=== PATIENT | male | born 1965 | race American Indian/Alaskan Native ===

== ENCOUNTER 2021-04-15 16:03 | Inpatient (IN) | payer MEDICARE ==
[2021-04-15] MEDS ORDERED: LIDOCAINE-MPF (1%) 10 MG/1 ML VIAL 5 ML INFILTRATI ONE (16:56)
--- NOTE | 2021-04-15 17:02 | Emergency Department Report ---
HPI - General Chief Complaint: Syncope Time Seen by Provider: 04/15/21 16:54 - HPI HPI: 55-year-old -Burm[place] male presents to the emergency department with complaint of 2 recent syncopal episodes that occur during coughing fits. The patient has a history of COPD, not oxygen dependent, and pulmonary hypertension. The patient also history of a pulmonary embolism for which he is anticoagulated on Eliquis and taking his medication compliantly. He says that he had an instance a few years ago in which she also had an episode where he passed out after coughing. Recently the patient says that any type of exertion brings on a coughing fit. The first time he passed out he fell and hurt his right knee. The second time he passed out, today, he fell onto his left knee and then hit his face. He complains of some bleeding to the lower gums. He denies any neck pain, fever, chest pain, vision change, slurred speech, numbness or paresthesias, focal or lateralizing weakness. He follows with [facility] cardiology for the pulmonary hypertension. ED Review of Systems ROS: Stated complaint: BLACK OUTS Other details as noted in HPI Comment: All other systems reviewed and negative Constitutional: denies: chills, fever Eyes: denies: eye pain, vision change ENT: denies: ear pain, throat pain Respiratory: cough, wheezing Cardiovascular: denies: chest pain, syncope Gastrointestinal: denies: abdominal pain, vomiting Genitourinary: denies: dysuria, discharge Musculoskeletal: denies: back pain, arthralgia Skin: denies: rash, lesions Neurological: denies: headache, weakness Physical Exam - Physical Exam Vital Signs: Vital Signs 04/15/21 16:18 Temperature 98.3 F Pulse Rate 88 Respiratory 16 Rate Blood Pressure 135/82 [Left] O2 Sat by Pulse 94 Oximetry Physical Exam: GENERAL: The patient is well-developed well-nourished. HENT: Normocephalic. Patient has moist mucous membranes. There is a small circ ular laceration to the lower midline gum where it meets the mucosa of the lower lip with mild venous bleeding. No obvious dental fracture or injury. No drooling or trismus. EYES: Extraocular motions are intact. Pupils equal reactive to light bilaterally. NECK: Supple. Trachea is midline. CHEST/LUNGS: Clear to auscultation. There is no respiratory distress noted. HEART/CARDIOVASCULAR: Regular. There is no tachycardia. There is no murmur. ABDOMEN: Abdomen is soft, nontender. Patient has normal bowel sounds. Obese habitus. SKIN: Skin is warm and dry. NEURO: The patient is awake, alert, and oriented. The patient is cooperative. The patient has no focal neurologic deficits. Normal speech. Cranial nerves II through XII grossly intact. MUSCULOSKELETAL: There is no tenderness or deformity. There is no limitation range of motion. ED Course Vital Signs 04/15/21 16:18 Temperature 98.3 F Pulse Rate 88 Respiratory 16 Rate Blood Pressure 135/82 [Left] O2 Sat by Pulse 94 Oximetry - Consultations Consultation #1: 04/15/21 19:[address] Alvarez, nephrology, who is part of the practice that this patient has just recently establish care with. Dr. Alvarez has requested the patient be admitted to the medical service and has asked for a UA and renal ultrasound to be completed. They will see the patient as a consult. - Laceration /Wound Repair Face Wound Location: mouth (Lower midline mouth where the gumline meets mucosa) Wound Length (cm): 1 (< 0.5) Wound's Depth, Shape: irregular (Circular opening) Wound Explored: no foreign body removed Anesthesia: 1% Lidocaine Volume Anesthetic (ccs): 1 Wound Repaired With: sutures Suture Size/Type: 5:0 Number of Sutures: 1 (Vicryl) Layer Closure?: No ED Medical Decision Making - Lab Data Result diagrams: 04/15/21 17:01 04/15/21 17:01 Labs 04/15/21 04/15/21 04/15/21 17:01 17:01 17:01 WBC 14.1 H RBC 4.17 Hgb 11.6 L Hct 35.1 L MCV 84 MCH 28 MCHC 33 RDW 23.2 H Plt Count 299 Add Manual Diff Complete Total Counted 100 Seg Neuts % (Manual) 72.0 H Band Neutrophils % 0 Lymphocytes % (Manual) 10.0 L Reactive Lymphs % (Man) 0 Monocytes % (Manual) 16.0 H Eosinophils % (Manual) 1.0 Basophils % (Manual) 1.0 Metamyelocytes % 0 Myelocytes % 0 Promyelocytes % 0 Blast Cells % 0 Nucleated RBC % Not Reportable Seg Neutrophils # Man 10.2 H Band Neutrophils # 0.0 Lymphocytes # (Manual) 1.4 Abs React Lymphs (Man) 0.0 Monocytes # (Manual) 2.3 H Eosinophils # (Manual) 0.1 Basophils # (Manual) 0.1 Metamyelocytes # 0.0 Myelocytes # 0.0 Promyelocytes # 0.0 Blast Cells # 0.0 WBC Morphology Not Reportable Hypersegmented Neuts Not Reportable Hyposegmented Neuts Not Reportable Hypogranular Neuts Not Reportable Smudge Cells Not Reportable Toxic Granulation Not Reportable Toxic Vacuolation Not Reportable Dohle Bodies Not Reportable Pelger-Huet Anomaly Not Reportable Wilfrid Rods Not Reportable Platelet Estimate Not Reportable Clumped Platelets Not Reportable Plt Clumps, EDTA Not Reportable Large Platelets Not Reportable Giant Platelets Not Reportable Platelet Satelliting Not Reportable Plt Morphology Comment Not Reportable RBC Morphology Not Reportable Dimorphic RBCs Not Reportable Polychromasia Not Reportable Hypochromasia Rare Poikilocytosis Not Reportable Anisocytosis 2+ Microcytosis Not Reportable Macrocytosis Not Reportable Spherocytes Not Reportable Pappenheimer Bodies Not Reportable Sickle Cells Not Reportable Target Cells Not Reportable Tear Drop Cells Not Reportable Ovalocytes Not Reportable Helmet Cells Not Reportable Muhammad-Lesage Bodies Not Reportable [place] Rings Not Reportable Bernard Cells Not Reportable Bite Cells Not Reportable Crenated Cell Not Reportable Elliptocytes Not Reportable Acanthocytes (Spur) Not Reportable Rouleaux Not Reportable Hemoglobin C Crystals Not Reportable Schistocytes Not Reportable Malaria parasites Not Reportable Carlton Bodies Not Reportable Hem Pathologist Commnt No PT 16.0 H INR 1.15 H APTT 28.1 Sodium 127 L Potassium 4.2 Chloride 78.1 L Carbon Dioxide 33 H Anion Gap 20 BUN 93 H Creatinine 3.0 H Estimated GFR 22 BUN/Creatinine Ratio 31 Glucose 211 H Calcium 9.4 Troponin T 0.027 NT-Pro-B Natriuret Pep 04/15/21 17:01 WBC RBC Hgb Hct MCV MCH MCHC RDW Plt Count Add Manual Diff Total Counted Seg Neuts % (Manual) Band Neutrophils % Lymphocytes % (Manual) Reactive Lymphs % (Man) Monocytes % (Manual) Eosinophils % (Manual) Basophils % (Manual) Metamyelocytes % Myelocytes % Promyelocytes % Blast Cells % Nucleated RBC % Seg Neutrophils # Man Band Neutrophils # Lymphocytes # (Manual) Abs React Lymphs (Man) Monocytes # (Manual) Eosinophils # (Manual) Basophils # (Manual) Metamyelocytes # Myelocytes # Promyelocytes # Blast Cells # WBC Morphology Hypersegmented Neuts Hyposegmented Neuts Hypogranular Neuts Smudge Cells Toxic Granulation Toxic Vacuolation Dohle Bodies Pelger-Huet Anomaly Wilfrid Rods Platelet Estimate Clumped Platelets Plt Clumps, EDTA Large Platelets Giant Platelets Platelet Satelliting Plt Morphology Comment RBC Morphology Dimorphic RBCs Polychromasia Hypochromasia Poikilocytosis Anisocytosis Microcytosis Macrocytosis Spherocytes Pappenheimer Bodies Sickle Cells Target Cells Tear Drop Cells Ovalocytes Helmet Cells Muhammad-Lesage Bodies [place] Rings Bernard Cells Bite Cells Crenated Cell Elliptocytes Acanthocytes (Spur) Rouleaux Hemoglobin C Crystals Schistocytes Malaria parasites Carlton Bodies Hem Pathologist Commnt PT INR APTT Sodium Potassium Chloride Carbon Dioxide Anion Gap BUN Creatinine Estimated GFR BUN/Creatinine Ratio Glucose Calcium Troponin T NT-Pro-B Natriuret Pep 992.6 H - Radiology Data Radiology results: report reviewed CT MAXILLOFACIAL WITHOUT CONTRAST INDICATION / CLINICAL INFORMATION: Syncope, facial trauma. TECHNIQUE: All CT scans at this location are performed using CT dose reduction for ALARA by means of automated exposure control. COMPARISON: None available. FINDINGS: SOFT TISSUE FACE: Soft tissue swelling is seen the region of the chin. Subcutaneous emphysema is observed suggesting a mucosal laceration. FACIAL BONES: No fracture or other significant abnormality. DENTAL HYGIENIST MOBILE COORDINATOR SPACES:Evaluation of the extension educator space structures reveal no abnormalities. SALIVARY GLANDS: Parotid and submandibular salivary glands have an unremarkable appearance. PARANASAL SINUSES: No significant abnormality. NASAL CAVITY:No abnormality ORBITS: Globes, optic nerves and extraocular muscles have an unremarkable appearance. TEMPORAL BONES:Visualized mastoid air cells and the middle ear cavities are normally pneumatized. VISUALIZED INTRACRANIAL STRUCTURES: Please refer to CT head dictated separately. IMPRESSION: 1. No indication of facial fracture or other osseous abnormality. CT HEAD WITHOUT CONTRAST INDICATION / CLINICAL INFORMATION: Syncope. TECHNIQUE: All CT scans at this location are performed using CT dose reduction for ALARA by means of automated exposure control. COMPARISON: None available. FINDINGS: HEMORRHAGE: No evidence of intracranial hemorrhage or extra-axial fluid collection. EXTRA-AXIAL SPACES: Cortical sulci, sylvian fissures and basilar cisterns have an unremarkable appearance. VENTRICULAR SYSTEM: The third and lateral ventricles are of normal size and configuration. CEREBRAL PARENCHYMA: No areas of abnormal brain parenchymal attenuation are identified. There is no indication of recent infarction. MIDLINE SHIFT OR HERNIATION: There is no mass effect. CEREBELLUM / BRAINSTEM: Brainstem and cerebellum have an unremarkable appearance. MIDLINE STRUCTURES:No abnormalities of the pituitary gland or pineal region are identified. INTRACRANIAL VESSELS:No abnormalities are identified on this noncontrast head CT. ORBITS: visualized portions of the orbits have an unremarkable appearance. SOFT TISSUES of HEAD: No significant abnormality. CALVARIUM: Evaluation of bone windows reveals no abnormalities. P ARANASAL SINUSES / MASTOID AIR CELLS: Visualized portions of the paranasal sinuses are free from inflammatory mucosal disease. Mastoid air cells are normally pneumatized. IMPRESSION: 1. No acute intracranial abnormality. ULTRASOUND RENAL INDICATION / CLINICAL INFORMATION: BARBER. COMPARISON: None a vailable. FINDINGS: Examination is limited due to body habitus. RIGHT KIDNEY: Size (in cm): 10.1 - Echogenicity: Normal. - Parenchymal Thickness: Normal. - Hydronephrosis: None. - Cyst or mass: No significant abnormality. - Stones: None seen. LEFT KIDNEY: Left kidney is not visualized. URINARY BLADDER: No significant abnormality. FREE FLUID: None. ADDITIONAL FINDINGS: None. IMPRESSION: Limited study, as above. 1. No evidence of acute abnormality of the right kidney. 2. Nonvisualization of the right kidney. XR chest routine 2V INDICATION / CLINICAL INFORMATION: Cough. COMPARISON: None available. FINDINGS: SUPPORT DEVICES: None. HEART /PULMONARY VASCULATURE: Heart size is normal. There is bilateral hilar prominence, which could reflect prominent vasculature or adenopathy. LUNGS / PLEURA: No acute pulmonary or pleural abnormality. No pneumothorax. ADDITIONAL FINDINGS: No significant additional findings. IMPRESSION: Bilateral hilar prominence, may reflect adenopathy or prominent pulmonary vasculature. Recommend further correlation with CT with contrast. Otherwise, no acute chest process. Bilateral knee radiographs, 3 views of each knee provided. HISTORY: Lateral knee pain COMPARISON: None FINDINGS: Right knee: No acute fracture or malalignment. Mild osteoarthritis. No significant joint capsular distention. Left knee: No acute fracture or malalignment. Mild osteoarthritis. No significant joint capsular distention. IMPRESSION: No acute osseous findings of either knee - Medical Decision Making This patient presents to the emergency department with complaint of at least 2 recurrent syncopal episodes that occur after coughing fits. The patient has some mild expiratory wheezing but otherwise I did not hear any coughing fits and he does not appear in any respiratory or acute distress. The patient has a small circular laceration where the lower gums meet the mucosa of the lower lip and one absorbable suture was placed as per the procedure section. CT scan of the head does not show any skull fracture, hemorrhage, or large ves suha occlusion. CT of the cervical spine does not show any fracture, subluxation, or any acute process. Chest x-ray does not show any pneumonia, pleural effusions, pneumothorax, widened mediastinum, rib fractures, or any acute process. X-ray of the bilateral knees does not show any fracture, dislocation, or any acute process. Patient's labs shows renal insufficiency with a GFR of about 20, and a BUN of about 90. The patient told me that he just saw a warp tying machine knotter for the first time about 1 week ago and it turned out to be with Dr. Monroe. I spoke to Dr. Alvarez, his partner, who was concerned about the elevated BUN. He asked for admission to the medicine service, renal ultrasound and urinalysis. UA does not show any acute process. Renal ultrasound shows no abnormalities in the right kidney but the left kidney was not visualized. Patient was accepted for admission by Dr. White. Critical Care Time: No Critical care attestation.: If time is entered above; I have spent that time in minutes in the direct care of this critically ill patient, excluding procedure time. ED Disposition Clinical Impression: Recurrent syncope, Uremia, BARBER (acute kidney injury), Hyponatremia, Hypochloremia Disposition: ADMITTED INPATIENT Is pt being admited?: Yes Condition: Fair Time of Disposition: 19:55
[2021-04-15 17:39] LABS: INR 1.15 (0.87-1.13)
[2021-04-15 17:40] LABS: Partial Thromboplastin Time 28.1 Sec. (24.2-36.6)
--- NOTE | 2021-04-15 17:40 | XRay Report ---
Bilateral knee radiographs, 3 views of each knee provided. HISTORY: Lateral knee pain COMPARISON: None FINDINGS: Right knee: No acute fracture or malalignment. Mild osteoarthritis. No significant joint capsular dis tention. Left knee: No acute fracture or malalignment. Mild osteoarthritis. No significant joint capsular dist ention. IMPRESSION: No acute osseous findings of either knee. Signer Name: Cain Anderson MD Signed: 04/15/2021 5:36 PM Workstation Name: [id number]
[2021-04-15 17:41] LABS: Hematocrit 35.1 % (35.5-45.6); Hemoglobin 11.6 gm/dl (11.8-15.2); Mean Corpuscular HGB Conc 33 % (32-34); Mean Corpuscular Volume 84 fl (84-94); Platelet Count 299 K/mm3 (140-440); Red Blood Count 4.17 M/mm3 (3.65-5.03)
[2021-04-15 17:42] LABS: Red Cell Distribution Width 23.2 % (13.2-15.2)
--- NOTE | 2021-04-15 17:42 | XRay Report ---
XR chest routine 2V INDICATION / CLINICAL INFORMATION: Cough. COMPARISON: None available. FINDINGS: SUPPORT DEVICES: None. HEART /PULMONARY VASCULATURE: Heart size is normal. There is bilateral hilar prominence, which could reflect prominent vasculature or adenopathy. LUNGS / PLEURA: No acute pulmonary or pleural abnormality. No pneumothorax. ADDITIONAL FINDINGS: No significant additional findings. IMPRESSION: Bilateral hilar prominence, may reflect adenopathy or prominent pulmonary vasculature. Recommend furt her correlation with CT with contrast. Otherwise, no acute chest process. Signer Name: Cain Anderson MD Signed: 04/15/2021 5:37 PM Workstation Name: [id number]
[2021-04-15 17:44] LABS: Calcium 9.4 mg/dL (8.4-10.2)
[2021-04-15 18:23] LABS: Anisocytosis 2+; Hypochromasia Rare; Total Cells Counted 100
--- NOTE | 2021-04-15 18:23 | Cat Scan Report ---
CT HEAD WITHOUT CONTRAST INDICATION / CLINICAL INFORMATION: Syncope. TECHNIQUE: All CT scans at this location are performed using CT dose reduction for ALARA by means of automated e xposure control. COMPARISON: None available. FINDINGS: HEMORRHAGE: No evidence of intracranial hemorrhage or extra-axial fluid collection. EXTRA-AXIAL SPACES: Cortical sulci, sylvian fissures and basilar cisterns have an unremarkable appear ance. VENTRICULAR SYSTEM: The third and lateral ventricles are of normal size and configuration. CEREBRAL PARENCHYMA: No areas of abnormal brain parenchymal attenuation are identified. There is no i ndication of recent infarction. MIDLINE SHIFT OR HERNIATION: There is no mass effect. CEREBELLUM / BRAINSTEM: Brainstem and cerebellum have an unremarkable appearance. MIDLINE STRUCTURES:No abnormalities of the pituitary gland or pineal region are identified. INTRACRANIAL VESSELS:No abnormalities are identified on this noncontrast head CT. ORBITS: visualized portions of the orbits have an unremarkable appearance. SOFT TISSUES of HEAD: No significant abnormality. CALVARIUM: Evaluation of bone windows reveals no abnormalities. PARANASAL SINUSES / MASTOID AIR CELLS: Visualized portions of the paranasal sinuses are free from inf lammatory mucosal disease. Mastoid air cells are normally pneumatized. IMPRESSION: 1. No acute intracranial abnormality. Signer Name: Watson Chatterjee MD Signed: 04/15/2021 6:19 PM Workstation Name: [id number]
--- NOTE | 2021-04-15 18:26 | Cat Scan Report ---
CT MAXILLOFACIAL WITHOUT CONTRAST INDICATION / CLINICAL INFORMATION: Syncope, facial trauma. TECHNIQUE: All CT scans at this location are performed using CT dose reduction for ALARA by means of automated e xposure control. COMPARISON: None available. FINDINGS: SOFT TISSUE FACE: Soft tissue swelling is seen the region of the chin. Subcutaneous emphysema is obse rved suggesting a mucosal laceration. FACIAL BONES: No fracture or other significant abnormality. DROP SHIPMENT CLERK SPACES:Evaluation of the j2ee android developer space structures reveal no abnormalities. SALIVARY GLANDS: Parotid and submandibular salivary glands have an unremarkable appearance. PARANASAL SINUSES: No significant abnormality. NASAL CAVITY:No abnormality ORBITS: Globes, optic nerves and extraocular muscles have an unremarkable appearance. TEMPORAL BONES:Visualized mastoid air cells and the middle ear cavities are normally pneumatized. VISUALIZED INTRACRANIAL STRUCTURES: Please refer to CT head dictated separately. IMPRESSION: 1. No indication of facial fracture or other osseous abnormality. Signer Name: Watson Chatterjee MD Signed: 04/15/2021 6:22 PM Workstation Name: [email or web address])
--- NOTE | 2021-04-15 20:03 | History and Physical Report ---
History of Present Illness Chief complaint: I started coughing and I passed out History of present illness: 55 YO Male with Obesity Hypoventilation Syndrome, COPD, CHF, PE on Therapeutic Anticoagulation with Eliquis, Pulmonary HTN presents to ED for evaluation. Patient states "I started coughing and I passed out". Patient states that he has experienced generalized weakness, shortness of breath over the past 1 week with intermittent symptoms over the same timeframe. Patient acknowledges 10 pound weight gain over the past 1 week, orthopnea, paroxysmal nocturnal dyspnea, decreased exercise tolerance. Patient transported to [facility] via private vehicle for further care and evaluation of the aforementioned symptoms. The patient was seen and evaluated in the emergency department. All lab and imaging studies reviewed. Patient found to have clinical symptoms consistent with CHF decompensation, BARBER with ATN, Cardiorenal syndrome as well as Pulmonary Hypertension. Patient admitted to telemetry and initiated on CHF protocol. Nephrology team consulted in ED. Patient has fever, chills, chest pain, palpitation, skin rash, recent contact, no exposure to COVID-19. No prior admission for review. All medication listed at time of admission has been reconciled. Advanced care planning conducted in ED. Past History Past Medical History: heart failure, hypertension, pulmonary embolism Past Surgical History: No surgical history, Other (Reviewed) Social history: single. denies: smoking, alcohol abuse, prescription drug abuse Family history: diabetes, hypertension Medications and Allergies Allergies Allergy/AdvReac Type Severity Reaction Status Date / Time No Known Allergies Allergy Verified 04/15/21 16:18 Review of Systems Constitutional: weight gain, weakness, no weight loss, no fever, no chills Ears, nose, mouth and throat: no ear pain, no tinnitis, no decreased hearing, no nasal congestion Cardiovascular: orthopnea, syncope, lightheadedness, shortness of breath, dyspnea on exertion, paroxysmal nocturnal dyspnea, decreased exercise tolerance, no chest pain Respiratory: cough, no cough with sputum, no excessive sputum Gastrointestinal: no abdominal pain, no nausea, no diarrhea, no constipation, no change in bowel habits Genitourinary Male: no hematuria, no flank pain, no discharge, no urinary hesitancy, no nocturia Rectal: no pain, no incontinence, no bleeding Musculoskeletal: no neck stiffness, no shooting arm pain, no arm numbness/tingling, no shooting leg pain Neurological: no transient paralysis, no numbness, no seizures, no tremors Psychiatric: no anxiety, no memory loss, no sleep disturbances, no insomnia, no disorientation Endocrine: no cold intolerance, no polyphagia, no excessive thirst, no polyuria Hematologic/Lymphatic: no easy bleeding Allergic/Immunologic: no urticaria, no allergic rhinitis, no wheezing Exam - Constitutional Vitals: Temp Pulse Resp BP Pulse Ox 98.3 F 88 16 135/82 94 04/15/21 16:18 04/15/21 16:18 04/15/21 16:18 04/15/21 16:18 04/15/21 16:18 General appearance: Present: mild distress - EENT Eyes: Present: PERRL ENT: hearing intact, clear oral mucosa - Neck Neck: Present: supple, normal ROM - Respiratory Respiratory effort: normal Respiratory: bilateral: diminished - Cardiovascular Heart Sounds: Present: S1 & S2. Absent: rub, click - Extremities Extremities: pulses symmetrical Extremity abnormal: edema Peripheral Pulses: within normal limits - Abdominal General gastrointestinal: Present: soft, non-tender, non-distended, normal bowel sounds Male genitourinary: Present: normal - Integumentary Integumentary: Present: clear, warm, dry - Musculoskeletal Musculoskeletal: gait normal, strength equal bilaterally - Psychiatric Psychiatric: appropriate mood/affect, intact judgment & insight - Neurologic Neurologic: CNII-XII intact, moves all extremities HEART Score - HEART Score Troponin: Troponin T 0.027 ng/mL (0.00-0.029) 04/15/21 17:01 Results - Labs CBC & Chem 7: 04/15/21 17:01 04/15/21 17:01 Labs: Abnormal lab results 04/15/21 04/15/21 04/15/21 Range/Units 17:01 17:01 17:01 WBC 14.1 H (4.5-11.0) K/mm3 Hgb 11.6 L (11.8-15.2) gm/dl Hct 35.1 L (35.5-45.6) % RDW 23.2 H (13.2-15.2) % Seg Neuts % (Manual) 72.0 H (40.0-70.0) % Lymphocytes % (Manual) 10.0 L (13.4-35.0) % Monocytes % (Manual) 16.0 H (0.0-7.3) % Seg Neutrophils # Man 10.2 H (1.8-7.7) K/mm3 Monocytes # (Manual) 2.3 H (0.0-0.8) K/mm3 PT 16.0 H (12.2-14.9) Sec. INR 1.15 H (0.87-1.13) Sodium 127 L (137-145) mmol/L Chloride 78.1 L (98-107) mmol/L Carbon Dioxide 33 H (22-30) mmol/L BUN 93 H (9-20) mg/dL Creatinine 3.0 H (0.8-1.3) mg/dL Glucose 211 H (75-100) mg/dL NT-Pro-B Natriuret Pep (0-900) pg/mL 04/15/21 Range/Units 17:01 WBC (4.5-11.0) K/mm3 Hgb (11.8-15.2) gm/dl Hct (35.5-45.6) % RDW (13.2-15.2) % Seg Neuts % (Manual) (40.0-70.0) % Lymphocytes % (Manual) (13.4-35.0) % Monocytes % (Manual) (0.0-7.3) % Seg Neutrophils # Man (1.8-7.7) K/mm3 Monocytes # (Manual) (0.0-0.8) K/mm3 PT (12.2-14.9) Sec. INR (0.87-1.13) Sodium (137-145) mmol/L Chloride (98-107) mmol/L Carbon Dioxide (22-30) mmol/L BUN (9-20) mg/dL Creatinine (0.8-1.3) mg/dL Glucose (75-100) mg/dL NT-Pro-B Natriuret Pep 992.6 H (0-900) pg/mL Assessment and Plan - Patient Problems (1) Cardiorenal syndrome Status: Acute Plan to address problem: Nephrology team consulted in ED, cardiology team consulted, supportive care, strict I's/O, daily weight, afterload reduction, blood pressure control. (2) CHF (congestive heart failure) Status: Acute Qualifiers: Heart failure chronicity: acute on chronic Plan to address problem: Strict I's/O, monitor urine output every shift afterload reduction, blood pressure control, diuresis, continue medical management. (3) Pulmonary hypertension Status: Acute Plan to address problem: Supportive care, outpatient pulmonary follow-up. Continue medical management, supplemental oxygen as clinically indicated. (4) Obesity hypoventilation syndrome Status: Acute Plan to address problem: Balanced diet, increase physical activity at discharge, outpatient pulmonary follow-up for sleep study. (5) Acute kidney injury (BARBER) with acute tubular necrosis (ATN) Status: Acute Plan to address problem: Monitor urine output every shift, BMP, continue medical management, nephrology team consulted, further care and evaluation as per nephrology team, renal ultrasound. (6) DVT prophylaxis Status: Acute Plan to address problem: SCD bilateral lower extremities while in bed continue therapeutic anticoagulation (7) Advance care planning Status: Acute Plan to address problem: Disease education conducted, care plan discussed, diagnoses discussed, prognosis discussed, patient is full code. Patient acknowledges understanding and agree with care plan, +30 minutes
[2021-04-15 20:18] LABS: Bilirubin,Urine NEG (Negative); Blood,Urine NEG (Negative); Color,Urine Straw (Yellow); Mucus,Urine FEW /HPF; Protein,Urine <15 mg/dL mg/dL (Negative); Urobilinogen,Urine < 2.0 mg/dL (<2.0)
[2021-04-15] MEDS ORDERED: ALBUTEROL 2.5 MG/3 ML NEBU IH PRN (20:46)
[2021-04-15] MEDS ORDERED: HYDROmorphone 1 MG/1 ML INJ IV PRN (20:46)
[2021-04-15] MEDS ORDERED: ONDANSETRON 4 MG/2 ML INJ IV PRN (20:46)
[2021-04-15] MEDS ORDERED: ACETAMINOPHEN 325 MG TAB PO PRN (20:46)
--- NOTE | 2021-04-15 20:46 | Ultrasound Report ---
. ULTRASOUND RENAL INDICATION / CLINICAL INFORMATION: BARBER. COMPARISON: None available. FINDINGS: Examination is limited due to body habitus. RIGHT KIDNEY: Size (in cm): 10.1 - Echogenicity: Normal. - Parenchymal Thickness: Normal. - Hydronephrosis: None. - Cyst or mass: No significant abnormality. - Stones: None seen. LEFT KIDNEY: Left kidney is not visualized. URINARY BLADDER: No significant abnormality. FREE FLUID: None. ADDITIONAL FINDINGS: None. IMPRESSION: Limited study, as above. 1. No evidence of acute abnormality of the right kidney. 2. Nonvisualization of the right kidney. Signer Name: Cain Anderson MD Signed: 04/15/2021 8:41 PM Workstation Name: [id number]
[2021-04-16] MEDS: oxyCODONE /ACETAMINOPHEN 5-325MG TAB PO PRN ×3 (02:28→22:58)
[2021-04-16 06:07] LABS: Calcium 8.6 mg/dL (8.4-10.2)
--- NOTE | 2021-04-16 09:35 | Progress Note ---
Assessment and Plan Assessment and plan: 55 YO Male with Obesity Hypoventilation Syndrome, COPD, CHF, PE on Therapeutic Anticoagulation with Eliquis, Pulmonary HTN presents to ED for evaluation of a syncopal episode after coughing. Patient states that he has experienced generalized weakness, shortness of breath over the past 1 week. Patient acknowledges 10 pound weight gain over the past 1 week, orthopnea, paroxysmal nocturnal dyspnea, decreased exercise tolerance. The patient was admitted with diagnosis of CHF decompensation, BARBER with ATN, Cardiorenal syndrome as well as Pulmonary Hypertension to telemetry and initiated on CHF protocol. Acute heart failure exacerbation Cardiorenal syndrome Acute kidney injury with ATN Pulmonary hypertension Obesity hypoventilation syndrome Hyponatremia Deglutition syncope 04/16/2021. We will check echocardiogram to assess systolic and diastolic function. Consult cardiology for further evaluation. Nephrology consulted for BARBER. Renal ultrasound shows no evidence of obstruction or hydronephrosis. Follow-up carotid ultrasound as well History Interval history: No new issues overnight Hospitalist Physical - Constitutional Vitals: Temp Pulse Resp BP Pulse Ox 98.2 F 68 18 97/62 88 04/16/21 04:17 04/16/21 04:17 04/16/21 04:17 04/16/21 04:17 04/16/21 04:17 General appearance: Present: no acute distress - EENT Eyes: Present: PERRL, EOM intact ENT: hearing intact, clear oral mucosa, dentition normal - Neck Neck: Present: supple, normal ROM - Respiratory Respiratory effort: normal Respiratory: bilateral: CTA - Cardiovascular Rhythm: regular Heart Sounds: Present: S1 & S2. Absent: gallop, rub - Extremities Extremities: no ischemia, No edema, Full ROM - Abdominal General gastrointestinal: soft, non-tender, non-distended, normal bowel sounds - Integumentary Integumentary: Present: clear, warm, dry - Neurologic Neurologic: CNII-XII intact, moves all extremities HEART Score - HEART Score Troponin: Troponin T 0.027 ng/mL (0.00-0.029) 04/15/21 17:01 Results - Labs CBC & Chem 7: 04/15/21 17:01 04/16/21 05:05 Labs: Laboratory Last Values WBC 14.1 K/mm3 (4.5-11.0) H 04/15/21 17: RBC 4.17 M/mm3 (3.65-5.03) 04/15/21 17:01 Hgb 11.6 gm/dl (11.8-15.2) L 04/15/21 17:01 Hct 35.1 % (35.5-45.6) L 04/15/21 17:01 MCV 84 fl (84-94) 04/15/21 17:01 MCH 28 pg (28-32) 04/15/21 17: MCHC 33 % (32-34) 04/15/21 17:01 RDW 23.2 % (13.2-15.2) H 04/15/21 17:01 Plt Count 299 K/mm3 (140-440) 04/15/21 17:01 Add Manual Diff Complete 04/15/21 17: Total Counted 100 04/15/21 17:01 Seg Neuts % (Manual) 72.0 % (40.0-70.0) H 04/15/21 17:01 Band Neutrophils % 0 % 04/15/21 17:01 Lymphocytes % (Manual) 10.0 % (13.4-35.0) L 04/15/21 17:01 Reactive Lymphs % (Man) 0 % 04/15/21 17:01 Monocytes % (Manual) 16.0 % (0.0-7.3) H 04/15/21 17:01 Eosinophils % (Manual) 1.0 % (0.0-4.3) 04/15/21 17:01 Basophils % (Manual) 1.0 % (0.0-1.8) 04/15/21 17:01 Metamyelocytes % 0 % 04/15/21 17:01 Myelocytes % 0 % 04/15/21 17:01 Promyelocytes % 0 % 04/15/21 17:01 Blast Cells % 0 % 04/15/21 17:01 Nucleated RBC % Not Reportable 04/15/21 17: Seg Neutrophils # Man 10.2 K/mm3 (1.8-7.7) H 04/15/21 17:01 Band Neutrophils # 0.0 K/mm3 04/15/21 17:01 Lymphocytes # (Manual) 1.4 K/mm3 (1.2-5.4) 04/15/21 17:01 Abs React Lymphs (Man) 0.0 K/mm3 04/15/21 17:01 Monocytes # (Manual) 2.3 K/mm3 (0.0-0.8) H 04/15/21 17:01 Eosinophils # (Manual) 0.1 K/mm3 (0.0-0.4) 04/15/21 17:01 Basophils # (Manual) 0.1 K/mm3 (0.0-0.1) 04/15/21 17:01 Metamyelocytes # 0.0 K/mm3 04/15/21 17:01 Myelocytes # 0.0 K/mm3 04/15/21 17:01 Promyelocytes # 0.0 K/mm3 04/15/21 17:01 Blast Cells # 0.0 K/mm3 04/15/21 17:01 WBC Morphology Not Reportable 04/15/21 17:01 Hypersegmented Neuts Not Reportable 04/15/21 17:01 Hyposegmented Neuts Not Reportable 04/15/21 17:01 Hypogranular Neuts Not Reportable 04/15/21 17:01 Smudge Cells Not Reportable 04/15/21 17:01 Toxic Granulation Not Reportable 04/15/21 17:01 Toxic Vacuolation Not Reportable 04/15/21 17:01 Dohle Bodies Not Reportable 04/15/21 17:01 Pelger-Huet Anomaly Not Reportable 04/15/21 17:01 Wilfrid Rods Not Reportable 04/15/21 17:01 Platelet Estimate Not Reportable 04/15/21 17:01 Clumped Platelets Not Reportable 04/15/21 17:01 Plt Clumps, EDTA Not Reportable 04/15/21 17:01 Large Platelets Not Reportable 04/15/21 17:01 Giant Platelets Not Reportable 04/15/21 17:01 Platelet Satelliting Not Reportable 04/15/21 17:01 Plt Morphology Comment Not Reportable 04/15/21 17:01 RBC Morphology Not Reportable 04/15/21 17:01 Dimorphic RBCs Not Reportable 04/15/21 17:01 Polychromasia Not Reportable 04/15/21 17:01 Hypochromasia Rare 04/15/21 17:01 Poikilocytosis Not Reportable 04/15/21 17:01 Anisocytosis 2+ 04/15/21 17:01 Microcytosis Not Reportable 04/15/21 17:01 Macrocytosis Not Reportable 04/15/21 17:01 Spherocytes Not Reportable 04/15/21 17:01 Pappenheimer Bodies Not Reportable 04/15/21 17:01 Sickle Cells Not Reportable 04/15/21 17:01 Target Cells Not Reportable 04/15/21 17:01 Tear Drop Cells Not Reportable 04/15/21 17:01 Ovalocytes Not Reportable 04/15/21 17:01 Helmet Cells Not Reportable 04/15/21 17:01 [place] Bodies Not Reportable 04/15/21 17:01 [place] Rings Not Reportable 04/15/21 17:01 [place] Cells Not Reportable 04/15/21 17:01 Bite Cells Not Reportable 04/15/21 17:01 Crenated Cell Not Reportable 04/15/21 17:01 Elliptocytes Not Reportable 04/15/21 17:01 Acanthocytes (Spur) Not Reportable 04/15/21 17:01 Rouleaux Not Reportable 04/15/21 17:01 Hemoglobin C Crystals Not Reportable 04/15/21 17:01 Schistocytes Not Reportable 04/15/21 17:01 Malaria parasites Not Reportable 04/15/21 17:01 [place] Bodies Not Reportable 04/15/21 17:01 Hem Pathologist Commnt No 04/15/21 17:01 PT 16.0 Sec. (12.2-14.9) H 04/15/21 17:01 INR 1.15 (0.87-1.13) H 04/15/21 17:01 APTT 28.1 Sec. (24.2-36.6) 04/15/21 17:01 Sodium 128 mmol/L (137-145) L 04/16/21 05:05 Potassium 3.2 mmol/L (3.6-5.0) L D 04/16/21 05:05 Chloride 78.9 mmol/L (98-107) L 04/16/21 05:05 Carbon Dioxide 36 mmol/L (22-30) H 04/16/21 05:05 Anion Gap 16 mmol/L 04/16/21 05:05 BUN 89 mg/dL (9-20) H 04/16/21 05:05 Creatinine 2.5 mg/dL (0.8-1.3) H 04/16/21 05:05 Estimated GFR 33 ml/min 04/16/21 05:05 BUN/Creatinine Ratio 36 % 04/16/21 05:05 Glucose 148 mg/dL (75-100) H 04/16/21 05:05 Calcium 8.6 mg/dL (8.4-10.2) 04/16/21 05:05 Troponin T 0.027 ng/mL (0.00-0.029) 04/15/21 17:01 NT-Pro-B Natriuret Pep 992.6 pg/mL (0-900) H 04/15/21 17:01 Urine Color Straw (Yellow) 04/15/21 Unknown Urine Turbidity Clear (Clear) 04/15/21 Unknown Urine pH 5.0 (5.0-7.0) 04/15/21 Unknown Ur Specific [place] 1.008 (1.003-1.030) 04/15/21 Unknown Urine Protein <15 mg/dl mg/dL (Negative) 04/15/21 Unknown Urine Glucose (UA) Neg mg/dL (Negative) 04/15/21 Unknown Urine Ketones Neg mg/dL (Negative) 04/15/21 Unknown Urine Blood Neg (Negative) 04/15/21 Unknown Urine Nitrite Neg (Negative) 04/15/21 Unknown Urine Bilirubin Neg (Negative) 04/15/21 Unknown Urine Urobilinogen < 2.0 mg/dL (<2.0) 04/15/21 Unknown Ur Leukocyte Esterase Neg (Negative) 04/15/21 Unknown Urine WBC (Auto) 1.0 /HPF (0.0-6.0) 04/15/21 Unknown Urine RBC (Auto) 2.0 /HPF (0.0-6.0) 04/15/21 Unknown U Epithel Cells (Auto) < 1.0 /HPF (0-13.0) 04/15/21 Unknown Urine Mucus Few /HPF 04/15/21 Unknown Pratt/IV: Voiding Method Toilet Active Medications - Current Medications Current Medications: Generic Name Dose Route Start Last Admin Trade Name Freq PRN Reason Stop Dose Admin Acetaminophen 650 mg 04/15/21 20:46 Acetaminophen 325 Mg Tab PO Q4H PRN Pain MILD(1-3)/Fever >100.5/CLEMENS Albuterol 2.5 mg 04/15/21 20:46 Albuterol 2.5 Mg/3 Ml Nebu IH Q4HRT PRN Shortness Of Breath Hydromorphone HCl 0.5 mg 04/15/21 20:46 Hydromorphone 1 Mg/1 Ml Inj IV Q23H PRN Pain , Severe (7-10) Ondansetron HCl 4 mg 04/15/21 20:46 Ondansetron 4 Mg/2 Ml Inj IV Q8H PRN Nausea And Vomiting Oxycodone/Acetaminophen 1 tab 04/15/21 20:46 04/16/21 02:28 Oxycodone /Acetaminophen 5-325mg Tab PO 1 tab Q16H PRN Administration Pain, Moderate (4-6) Sodium Chloride 10 ml 04/15/21 22:00 04/16/21 00:00 Sodium Chloride 0.9% 10 Ml Flush Syringe IV 10 ml BID RADHA Administration Sodium Chloride 10 ml 04/15/21 20:46 Sodium Chloride 0.9% 10 Ml Flush Syringe IV PRN PRN LINE FLUSH
--- NOTE | 2021-04-16 10:37 | Consultation ---
History of Present Illness - Reason for Consult Consult date: 04/16/21 acute renal failure Requesting physician: HAILY ISBELL - History of Present Illness This is a 55 yo M with past medical history of chronic diastolic heart failure, CAD, A-fib, ERI, pulmonary hypertension, recently seen in our office for management of CKD, with baseline Cr around 1.5-2mg/dl for the last 1-2years, who presents to the ER with complaints of generalized weakness, shortness of breath over the past 1 week, orthopnea, paroxysmal nocturnal dyspnea, decreased exercise tolerance along with weight gain > 10lbs over the past 1 week. CXR showed prominent pulmonary vascular prominence, Labs showed elevated proBNP > 990, elevated BUN/Cr at 93/3.0mg/dl along with hyponatremia with Na 127. Patient was admitted to telemetry and initiated on CHF protocol, renal consult is requested for management of BARBER. Past History Past Medical History: heart failure, hypertension, pulmonary embolism Past Surgical History: No surgical history, Other (Reviewed) Social history: single. denies: smoking, alcohol abuse, prescription drug abuse Family history: diabetes, hypertension Medications and Allergies Allergies Allergy/AdvReac Type Severity Reaction Status Date / Time No Known Allergies Allergy Verified 04/15/21 16:18 Home Medications Medication Instructions Recorded Confirmed Last Taken Type Albuterol Mdi (or & Nicu Only) 2 puff IH QID PRN 04/16/21 04/16/21 04/15/21 History [ProAir HFA Inhaler] Apixaban [Eliquis] 5 mg PO BID 04/16/21 04/16/21 04/15/21 History Aspirin EC [Halfprin EC] 81 mg PO QDAY 04/16/21 04/16/21 04/15/21 History Atorvastatin [Lipitor Tab] 40 mg PO DAILY 04/16/21 04/16/21 04/15/21 History Bimatoprost [Lumigan 0.01%] 1 drop OU QHS 04/16/21 04/16/21 04/15/21 History Darunavir [Prezista] 800 mg PO QDAY 04/16/21 04/16/21 04/15/21 History Elviteg/Cob/Emtri/Tenof Alafen 1 tab PO DAILY 04/16/21 04/16/21 04/15/21 History [Genvoya Tablet] Empagliflozin [Jardiance] 10 mg PO QDAY 04/16/21 04/16/21 04/15/21 History Eplerenone 25 mg PO BID 04/16/21 04/16/21 04/15/21 History Fluticasone Propion/Salmeterol 1 each IH BID PRN 04/16/21 04/16/21 04/15/21 History [Wixela 100-50 Inhub] Ipratropium/Albuterol Sulfate 1 ampul IH QID PRN 04/16/21 04/16/21 04/15/21 History [DUONEB *Not for PRN Use*] Linagliptin [Tradjenta] 5 mg PO QDAY 04/16/21 04/16/21 04/15/21 History Potassium Chloride [K-Dur] 40 meq PO QDAY 04/16/21 04/16/21 04/15/21 History Promethazine Dm (Nf) [Phenergan Dm 5 ml PO Q6H PRN 04/16/21 04/16/21 Unknown History 6.25/15 mg 5 ml] Pyridoxine HCl (Vitamin B6) 25 mg PO DAILY 04/16/21 04/16/21 04/15/21 History [Vitamin B-6 25MG TAB] Sildenafil Citrate [Viagra] 100 mg PO PRN PRN 04/16/21 04/16/21 Unknown History Tadalafil [Cialis] 10 mg PO QDAY 04/16/21 04/16/21 Unknown History Tamsulosin [Flomax] 0.4 mg PO DAILY 04/16/21 04/16/21 04/15/21 History Thiamine [Vitamin B-1] 100 mg PO QDAY 04/16/21 04/16/21 04/15/21 History Torsemide [Demadex] 100 mg PO BID 04/16/21 04/16/21 04/15/21 History metOLazone [Zaroxolyn] 5 mg PO QDAY 04/16/21 04/16/21 04/15/21 History Active Meds: Active Medications Acetaminophen (Acetaminophen 325 Mg Tab) 650 mg PO Q4H PRN PRN Reason: Pain MILD(1-3)/Fever >100.5/CLEMENS Albuterol (Albuterol 2.5 Mg/3 Ml Nebu) 2.5 mg IH Q4HRT PRN PRN Reason: Shortness Of Breath Hydromorphone HCl (Hydromorphone 1 Mg/1 Ml Inj) 0.5 mg IV Q23H PRN PRN Reason: Pain , Severe (7-10) Ondansetron HCl (Ondansetron 4 Mg/2 Ml Inj) 4 mg IV Q8H PRN PRN Reason: Nausea And Vomiting Oxycodone/Acetaminophen (Oxycodone /Acetaminophen 5-325mg Tab) 1 tab PO Q16H PRN PRN Reason: Pain, Moderate (4-6) Last Admin: 04/16/21 02:28 Dose: 1 tab Sodium Chloride (Sodium Chloride 0.9% 10 Ml Flush Syringe) 10 ml IV BID RADHA Last Admin: 04/16/21 09:46 Dose: 10 ml Sodium Chloride (Sodium Chloride 0.9% 10 Ml Flush Syringe) 10 ml IV PRN PRN PRN Reason: LINE FLUSH Review of Systems Constitutional: fatigue, weakness, malaise, lethargy Cardiovascular: orthopnea, lightheadedness, shortness of breath, dyspnea on exertion, paroxysmal nocturnal dyspnea Exam - Vital Signs Vital signs: Vital Signs Temp Pulse Resp BP Pulse Ox 98.3 F 88 16 135/82 94 04/15/21 16:18 04/15/21 16:18 04/15/21 16:18 04/15/21 16:18 04/15/21 16:18 - General Appearance General appearance: well-developed, well-nourished, appears stated age EENT: ATNC, PERRL, mucous membranes moist Neck: Present: neck supple Respiratory: Clear to Ascultation Heart: regular, S1S2 Gastrointestinal: Present: normoactive bowel sounds Integumentary: no rash Neurologic: no focal deficit, alert and oriented x3, strength 5/5, CN 3-12 intact Psychiatric: mood/affect appropriate, cooperative Results - Lab Results 04/15/21 17:01 04/16/21 05:05 Most recent lab results Calcium 8.6 mg/dL (8.4-10.2) 04/16/21 05:05 Assessment and Plan - Patient Problems (1) BARBER (acute kidney injury) Current Visit: Yes Status: Acute Plan to address problem: acute kidney injury is most likely secondary to pre-renal azotemia in the setting of diuretic therapy with torsemide/metolazone. Patient appears well volume controlled at present, will hold off on diuretic for now and reassess renal parameters. Patient has history of hyponatremia on thiazide diuretic, recommend to hold metolazone in the future and add spironolactone or eplerenone to torsemide as maintenance diuretic regimen once renal function stabilizes. Renal ultrasound shows no evidence of obstruction or hydronephrosis. Follow-up carotid ultrasound as well Check urine lytes, urine Protein/Cr ratio. cont supportive care for BARBER/CKD avoid nephrotoxins, IV contrast, NSAIDs. (2) Chronic diastolic heart failure Current Visit: Yes Status: Acute Plan to address problem: management as per cardiology (3) Hyponatremia Current Visit: Yes Status: Acute Plan to address problem: likely hypovolemic nature, hold diuretics for now. Once renal function and volume/BP setatus stabilizes will restart loop diuretics first (4) Obesity hypoventilation syndrome Current Visit: Yes Status: Acute Plan to address problem: cont CPAP (5) Pulmonary hypertension Current Visit: Yes Status: Acute (6) HIV (human immunodeficiency virus infection) Current Visit: Yes Status: Acute
--- NOTE | 2021-04-16 11:17 | Vascular Lab Report ---
DUPLEX DOPPLER ULTRASOUND CAROTID, BILATERAL INDICATION / CLINICAL INFORMATION: s yncope. COMPARISON: None available. FINDINGS: RIGHT CAROTID: - PLAQUE ESTIMATE (%): < 50% - CCA velocity: 86.8 cm/sec. - ICA peak systolic velocity: 92.4 cm/sec. - ICA/CCA PSV Ratio: 1.06 Right Vertebral Artery: Antegrade flow. LEFT CAROTID: - PLAQUE ESTIMATE (%): < 50% - CCA velocity: 89 cm/sec. - ICA peak systolic velocity: 121 cm/sec. - ICA/CCA PSV Ratio: 1.4 Left Vertebral Artery: Antegrade flow. IMPRESSION: 1. Right Internal Carotid Artery: Less than 50% diameter stenosis. 2. Left Internal Carotid Artery: Less than 50% diameter stenosis. Velocity criteria are extrapolated from diameter data as defined by the Society of Radiologists in Ul trasound Consensus Conference, Radiology 2003; 229;340-346. NO STENOSIS (NORMAL) - Plaque = none; ICA PSV < 125 cm/sec; ICA/CCA PSV Ratio < 2.0 <50% STENOSIS - Plaque < 50%; ICA PSV < 125 cm/sec; ICA/CCA PSV Ratio < 2.0 50-69% STENOSIS - Plaque > 50%; ICA PSV = 125-230 cm/sec; ICA/CCA PSV Ratio = 2.0-4.0 >70% BUT <100% STENOSIS - Plaque > 50%; ICA PSV > 230 cm/sec; ICA/CCA PSV Ratio > 4.0 NEAR OCCLUSION - Plaque = visible lumen; ICA PSV = high/low/none; ICA/CCA PSV Ratio = variable TOTAL OCCLUSION - Plaque = no lumen; ICA PSV = none; ICA/CCA PSV Ratio = N/A Signer Name: Rigo Lynn MD Signed: 04/16/2021 11:06 AM Workstation Name: [email or web address]
[2021-04-16] MEDS ORDERED: FLUTICASONE PROPION IH PRN (12:33)
[2021-04-16] MEDS ORDERED: IPRATROPIUM/ALBUTEROL SULFATE 3 ML AMPUL.NEB IH PRN (12:33)
[2021-04-16] MEDS ORDERED: SALMETEROL IH PRN (12:33)
[2021-04-16] MEDS ORDERED: [UNRECOGNIZED DRUG - OTHER] IH PRN (12:33)
[2021-04-16] MEDS ORDERED: ARFORMOTEROL 15 MCG/2 ML NEBU IH PRN (13:14)
[2021-04-16] MEDS ORDERED: BUDESONIDE 0.5 MG/2 ML NEBU IH PRN (13:15)
--- NOTE | 2021-04-16 14:10 | Consultation ---
History of Present Illness Consult date: 04/16/21 Requesting physician: ELLA GARCÍA Consult reason: congestive heart failure History of present illness: Patient is a 55-year-old male with a past medical history of HFpEF, COPD, CKD, diabetes, hypertension, history of NM, pulmonary hypertension, history of DVT, and HIV presents to the ED for complaint of passing out. Patient reports that over the last week he has been having symptoms of passing out while coughing. He reports that yesterday he had one of his coughing fits and passed out while standing and fell and hit his head and his knees. Patient reports that he is chronically short of breath due to his COPD/emphysema however he is states he has not noticed any worsening shortness of breath. He reports that he had a weight gain of 10 pounds over the last several weeks with some swelling in his legs however he states that he lost the weight and the swelling in his legs went down after his PCP gave him what he states are steroids. He currently denies any chest pain, nausea, vomiting, diaphoresis, lightheadedness. Patient is followed by Dr. Padilla our practice. Cardiology is consulted for heart failure Past History Past Medical History: COPD, diabetes, heart failure, HIV/AIDS, hypertension, pulmonary embolism Past Surgical History: No surgical history, Other Social history: single. denies: smoking, alcohol abuse, prescription drug abuse Family history: diabetes, hypertension Medications and Allergies Allergies Allergy/AdvReac Type Severity Reaction Status Date / Time No Known Allergies Allergy Verified 04/15/21 16:18 Home Medications Medication Instructions Recorded Confirmed Last Taken Type Albuterol Mdi (or & Nicu Only) 2 puff IH QID PRN 04/16/21 04/16/21 04/15/21 History [ProAir HFA Inhaler] Apixaban [Eliquis] 5 mg PO BID 04/16/21 04/16/21 04/15/21 History Aspirin EC [Halfprin EC] 81 mg PO QDAY 04/16/21 04/16/21 04/15/21 History Atorvastatin [Lipitor Tab] 40 mg PO DAILY 04/16/21 04/16/21 04/15/21 History Bimatoprost [Lumigan 0.01%] 1 drop OU QHS 04/16/21 04/16/21 04/15/21 History Darunavir [Prezista] 800 mg PO QDAY 04/16/21 04/16/21 04/15/21 History Elviteg/Cob/Emtri/Tenof Alafen 1 tab PO DAILY 04/16/21 04/16/21 04/15/21 History [Genvoya Tablet] Empagliflozin [Jardiance] 10 mg PO QDAY 04/16/21 04/16/21 04/15/21 History Eplerenone 25 mg PO BID 04/16/21 04/16/21 04/15/21 History Fluticasone Propion/Salmeterol 1 each IH BID PRN 04/16/21 04/16/21 04/15/21 History [Wixela 100-50 Inhub] Ipratropium/Albuterol Sulfate 1 ampul IH QID PRN 04/16/21 04/16/21 04/15/21 History [DUONEB *Not for PRN Use*] Linagliptin [Tradjenta] 5 mg PO QDAY 04/16/21 04/16/21 04/15/21 History Potassium Chloride [K-Dur] 40 meq PO QDAY 04/16/21 04/16/21 04/15/21 History Promethazine Dm (Nf) [Phenergan Dm 5 ml PO Q6H PRN 04/16/21 04/16/21 Unknown History 6.25/15 mg 5 ml] Pyridoxine HCl (Vitamin B6) 25 mg PO DAILY 04/16/21 04/16/21 04/15/21 History [Vitamin B-6 25MG TAB] Sildenafil Citrate [Viagra] 100 mg PO PRN PRN 04/16/21 04/16/21 Unknown History Tadalafil [Cialis] 10 mg PO QDAY 04/16/21 04/16/21 Unknown History Tamsulosin [Flomax] 0.4 mg PO DAILY 04/16/21 04/16/21 04/15/21 History Thiamine [Vitamin B-1] 100 mg PO QDAY 04/16/21 04/16/21 04/15/21 History Torsemide [Demadex] 100 mg PO BID 04/16/21 04/16/21 04/15/21 History metOLazone [Zaroxolyn] 5 mg PO QDAY 04/16/21 04/16/21 04/15/21 History Active Meds: Active Medications Acetaminophen (Acetaminophen 325 Mg Tab) 650 mg PO Q4H PRN PRN Reason: Pain MILD(1-3)/Fever >100.5/CLEMENS Albuterol (Albuterol 2.5 Mg/3 Ml Nebu) 2.5 mg IH Q4HRT PRN PRN Reason: Shortness Of Breath Albuterol/Ipratropium (Ipratropium/Albuterol Sulfate 3 Ml Ampul.Neb) 1 ampul IH QID PRN PRN Reason: Wheezing Apixaban (Apixaban 5 Mg Tab) 5 mg PO Q12HR RADHA; Protocol Arformoterol Tartrate (Arformoterol 15 Mcg/2 Ml Nebu) 15 mcg IH Q12HRT PRN PRN Reason: COPD SYMPTOMS Aspirin (Aspirin Ec 81 Mg Tab) 81 mg PO QDAY [facility] Atorvastatin Calcium (Atorvastatin 40 Mg Tab) 40 mg PO QHS RADHA Budesonide (Budesonide 0.5 Mg/2 Ml Nebu) 0.5 mg IH Q12HRT PRN PRN Reason: COPD SYMPTOMS Darunavir (Darunavir 800 Mg Tab) 800 mg PO QDAY [facility] Dolutegravir Sodium (Dolutegravir 50 Mg Tab) 50 mg PO DAILY [facility] Emtricitabine (Emtricitabine 200 Mg Cap) 200 mg PO QDAY [facility] Hydromorphone HCl (Hydromorphone 1 Mg/1 Ml Inj) 0.5 mg IV Q23H PRN PRN Reason: Pain , Severe (7-10) Latanoprost (Latanoprost 0.005% Ophth Soln 2.5 Ml) 1 drops OU QHS [facility] Linagliptin (Linagliptin 5 Mg Tab) 5 mg PO QDDIAB [facility] Miscellaneous Medication (Empagliflozin [Jardiance]) 10 mg PO QDAY [facility] Miscellaneous Medication (Eplerenone [Eplerenone]) 25 mg PO BID [facility] Ondansetron HCl (Ondansetron 4 Mg/2 Ml Inj) 4 mg IV Q8H PRN PRN Reason: Nausea And Vomiting Oxycodone/Acetaminophen (Oxycodone /Acetaminophen 5-325mg Tab) 1 tab PO Q16H PRN PRN Reason: Pain, Moderate (4-6) Last Admin: 04/16/21 11:28 Dose: 1 tab Pyridoxine HCl (Pyridoxine 50 Mg Tab) 25 mg PO QDAY [facility] Sodium Chloride (Sodium Chloride 0.9% 10 Ml Flush Syringe) 10 ml IV BID [facility] Last Admin: 04/16/21 09:46 Dose: 10 ml Sodium Chloride (Sodium Chloride 0.9% 10 Ml Flush Syringe) 10 ml IV PRN PRN PRN Reason: LINE FLUSH Tamsulosin HCl (Tamsulosin 0.4 Mg Cap) 0.4 mg PO DAILY [facility] Tenofovir Disoproxil Fumarate (Tenofovir 300 Mg Tab) 300 mg PO QDAY [facility] Thiamine HCl (Thiamine 100 Mg Tab) 100 mg PO QDAY [facility] Review of Systems Constitutional: weight gain, no fever, no chills Ears, nose, mouth and throat: no nasal discharge, no sinus pressure, no sinus pain Cardiovascular: shortness of breath, dyspnea on exertion, no chest pain, no palpitations, no paroxysmal nocturnal dyspnea Respiratory: shortness of breath, dyspnea on exertion Gastrointestinal: no abdominal pain, no nausea, no vomiting Musculoskeletal: no neck stiffness, no neck pain, no shooting arm pain Integumentary: no rash, no pruritis, no redness Neurological: syncope, no head injury, no transient paralysis Psychiatric: no anxiety, no memory loss Endocrine: no cold intolerance, no heat intolerance Physical Examination Vital Signs Temp Pulse Resp BP Pulse Ox 98.3 F 88 16 135/82 94 04/15/21 16:18 04/15/21 16:18 04/15/21 16:18 04/15/21 16:18 04/15/21 16:18 General appearance: no acute distress HEENT: Positive: PERRL Neck: Positive: trachea midline Cardiac: Positive: Reg Rate and Rhythm Lungs: Positive: Decreased Breath Sounds Neuro: Positive: Grossly Intact Abdomen: Positive: Soft Skin: Negative: Rash, Suspicious Lesions, Ulceration Extremities: Present: upper extr. pulses. Absent: edema Results 04/15/21 17:01 04/16/21 05:05 Coagulation 04/15/21 Range/Units 17:01 PT 16.0 H (12.2-14.9) Sec. INR 1.15 H (0.87-1.13) APTT 28.1 (24.2-36.6) Sec. CBC 04/15/21 Range/Units 17:01 WBC 14.1 H (4.5-11.0) K/mm3 RBC 4.17 (3.65-5.03) M/mm3 Hgb 11.6 L (11.8-15.2) gm/dl Hct 35.1 L (35.5-45.6) % Plt Count 299 (140-440) K/mm3 Comprehensive Metabolic Panel 04/15/21 04/16/21 Range/Units 17:01 05:05 Sodium 127 L 128 L (137-145) mmol/L Potassium 4.2 3.2 L D (3.6-5.0) mmol/L Chloride 78.1 L 78.9 L (98-107) mmol/L Carbon Dioxide 33 H 36 H (22-30) mmol/L BUN 93 H 89 H (9-20) mg/dL Creatinine 3.0 H 2.5 H (0.8-1.3) mg/dL Glucose 211 H 148 H (75-100) mg/dL Calcium 9.4 8.6 (8.4-10.2) mg/dL - Imaging and Cardiology Echo: pending, report reviewed EKG interpretations - Telemetry EKG Rhythm: Sinus Rhythm - EKG Sinus rhythms and dysrhythmias: sinus rhythm AV and intraventricular conduction: right bundle branch block Assessment and Plan Patient is a 55-year-old male with a past medical history of HFpEF, COPD, CKD, diabetes, hypertension, history of NM, pulmonary hypertension, history of DVT, and HIV presents to the ED for complaint of passing out Syncope Fall Hyponatremia Acute on chronic HFpEF COPD BARBER on CKD-nephrology following Hypertension Pulmonary hypertension History of DVT-on Eliquis as an outpatient HIV Diabetes Echo 11/20/2020 -this is a technically difficult study with limited views despite best efforts and use of contrast. Mildly enlarged right ventricular cavity size. Mildly reduced right ventricular systolic function. Normal left ventricular size. Mild concentric left ventricular hypertrophy. In apical 3 there is some septal dysynchrony/early relaxation. Normal global left ventricular systolic function. Left ventricular ejection fraction is 55-60%. Mild tricuspid regurgitation. Mild pulmonic valve insufficiency. Mildly dilated atria. Estimated right ventricular systolic pressure is moderately elevated at 52.8 mmHg.The estimated right ventricular systolic pressure is moderately elevated right ventricular systolic pressure at 52.8 mmHg Outpatient medications: Metolazone 5 mg p.o. daily, Eliquis, torsemide 100 mg p.o. twice daily, atorvastatin 40 mg p.o. nightly, aspirin Plan: EKG shows sinus rhythm 75 RBBB and LPFB. No acute ischemic change troponins negative x1. Patient currently chest pain-free and has denied any complaints of chest pain BNP noted to be elevated. Patient had echo done as an outpatient in our office yesterday waiting for echo results Will defer to nephrology for volume management due to renal function Agree with Eliquis, aspirin, atorvastatin Patient in conjunction with Dr. Mcfadden who agrees with this plan of care - Patient Problems (1) Acute kidney injury superimposed on CKD Current Visit: Yes Status: Acute (2) COPD (chronic obstructive pulmonary disease) Current Visit: Yes Status: Acute (3) Diabetes Current Visit: Yes Status: Acute (4) Cardiorenal syndrome Current Visit: Yes Status: Acute (5) Hyponatremia Current Visit: Yes Status: Acute (6) Pulmonary hypertension Current Visit: Yes Status: Acute (7) Recurrent syncope Current Visit: Yes Status: Acute
[2021-04-16] MEDS: ASPIRIN EC 81 MG TAB PO SCH (14:35)
[2021-04-16] MEDS: APIXABAN 5 MG TAB PO SCH ×2 (14:35→22:59)
[2021-04-16] MEDS: TAMSULOSIN 0.4 MG CAP PO SCH (14:38)
[2021-04-16] MEDS: DARUNAVIR 800 MG TAB PO SCH (17:21)
[2021-04-16] MEDS: DOLUTEGRAVIR 50 MG TAB PO SCH (17:21)
[2021-04-16] MEDS: TENOFOVIR 300 MG TAB PO SCH (17:21)
[2021-04-16] MEDS: EMTRICITABINE 200 MG CAP PO SCH (17:22)
[2021-04-16] MEDS ORDERED: NON-FORMULARY EACH (Apixaban 5 MG Tablet) PO SCH (22:00)
[2021-04-16] MEDS ORDERED: EPLERENONE 25 MG PO SCH (22:00)
[2021-04-16] MEDS ORDERED: NON-FORMULARY EACH (Bimatoprost [Lumigan 0.01%] 5 ML Drops) OU SCH (22:00)
[2021-04-16] MEDS ORDERED: APIXABAN 5 MG TAB PO SCH (22:00)
[2021-04-16] MEDS: LATANOPROST 0.005% OPHTH SOLN 2.5 ML OU SCH (23:00)
[2021-04-17] MEDS: oxyCODONE /ACETAMINOPHEN 5-325MG TAB PO PRN ×2 (08:20→22:02)
[2021-04-17] MEDS: DOLUTEGRAVIR 50 MG TAB PO SCH (09:18)
[2021-04-17] MEDS: APIXABAN 5 MG TAB PO SCH ×2 (09:18→21:55)
[2021-04-17] MEDS: EMTRICITABINE 200 MG CAP PO SCH (09:18)
[2021-04-17] MEDS: LINAGLIPTIN 5 MG TAB PO SCH (09:18)
[2021-04-17] MEDS: TAMSULOSIN 0.4 MG CAP PO SCH (09:18)
[2021-04-17] MEDS: ASPIRIN EC 81 MG TAB PO SCH (09:19)
[2021-04-17] MEDS: THIAMINE 100 MG TAB PO SCH (09:19)
[2021-04-17] MEDS: PYRIDOXINE 50 MG TAB PO SCH (09:19)
[2021-04-17] MEDS: DARUNAVIR 800 MG TAB PO SCH (09:19)
[2021-04-17] MEDS: TENOFOVIR 300 MG TAB PO SCH (09:20)
--- NOTE | 2021-04-17 09:30 | Progress Note ---
Assessment and Plan Assessment and plan: 55 YO Male with Obesity Hypoventilation Syndrome, COPD, CHF, PE on Therapeutic Anticoagulation with Eliquis, Pulmonary HTN presents to ED for evaluation of a syncopal episode after coughing. Patient states that he has experienced generalized weakness, shortness of breath over the past 1 week. Patient acknowledges 10 pound weight gain over the past 1 week, orthopnea, paroxysmal nocturnal dyspnea, decreased exercise tolerance. The patient was admitted with diagnosis of CHF decompensation, BARBER with ATN, Cardiorenal syndrome as well as Pulmonary Hypertension to telemetry and initiated on CHF protocol. Acute heart failure exacerbation Acute on chronic hypoxic respiratory failure. Patient with home oxygen of 3 L. Cardiorenal syndrome Acute kidney injury with ATN Pulmonary hypertension Obesity hypoventilation syndrome Hyponatremia Deglutition syncope 04/16/2021. We will check echocardiogram to assess systolic and diastolic function. Consult cardiology for further evaluation. Nephrology consulted for BARBER. Renal ultrasound shows no evidence of obstruction or hydronephrosis. Follow-up carotid ultrasound as well 04/17/2021. Cardiology reports patient had echocardiogram done as an outpatient in their office 2 days ago. Await echo results. Continue Eliquis, aspirin and atorvastatin. Nephrology reports acute kidney injury is most likely secondary to pre-renal azotemia in the setting of diuretic therapy with torsemide/metolazone. Patient appears well volume controlled at present, will hold off on diuretic for now and reassess renal parameters. Patient has history of hyponatremia on thiazide diuretic, nephrology recommends to hold metolazone in the future. Spironolactone will likely be added to diuretic regimen once kidney function stabilizes. Renal ultrasound shows no evidence of obstruction or hydronephrosis. Carotid ultrasound is negative. History Interval history: No new issues overnight Hospitalist Physical - Constitutional Vitals: Temp Pulse Resp BP Pulse Ox 97.3 F L 68 18 115/74 99 04/16/21 22:07 04/16/21 22:07 04/17/21 00:00 04/16/21 22:07 04/17/21 00:00 General appearance: Present: no acute distress - EENT Eyes: Present: PERRL, EOM intact ENT: hearing intact, clear oral mucosa, dentition normal - Neck Neck: Present: supple, normal ROM - Respiratory Respiratory effort: normal Respiratory: bilateral: CTA - Cardiovascular Rhythm: regular Heart Sounds: Present: S1 & S2. Absent: gallop, rub - Extremities Extremities: no ischemia, No edema, Full ROM - Abdominal General gastrointestinal: soft, non-tender, non-distended, normal bowel sounds - Integumentary Integumentary: Present: clear, warm, dry - Neurologic Neurologic: CNII-XII intact, moves all extremities HEART Score - HEART Score Troponin: Troponin T 0.027 ng/mL (0.00-0.029) 04/15/21 17:01 Results - Labs CBC & Chem 7: 04/15/21 17:01 04/16/21 05:05 Labs: Laboratory Last Values WBC 14.1 K/mm3 (4.5-11.0) H 04/15/21 17: RBC 4.17 M/mm3 (3.65-5.03) 04/15/21 17:01 Hgb 11.6 gm/dl (11.8-15.2) L 04/15/21 17:01 Hct 35.1 % (35.5-45.6) L 04/15/21 17: MCV 84 fl (84-94) 04/15/21 17:01 MCH 28 pg (28-32) 04/15/21 17:01 MCHC 33 % (32-34) 04/15/21 17:01 RDW 23.2 % (13.2-15.2) H 04/15/21 17:01 Plt Count 299 K/mm3 (140-440) 04/15/21 17:01 Add Manual Diff Complete 04/15/21 17:01 Total Counted 100 04/15/21 17:01 Seg Neuts % (Manual) 72.0 % (40.0-70.0) H 04/15/21 17:01 Band Neutrophils % 0 % 04/15/21 17:01 Lymphocytes % (Manual) 10.0 % (13.4-35.0) L 04/15/21 17:01 Reactive Lymphs % (Man) 0 % 04/15/21 17: Monocytes % (Manual) 16.0 % (0.0-7.3) H 04/15/21 17:01 Eosinophils % (Manual) 1.0 % (0.0-4.3) 04/15/21 17:01 Basophils % (Manual) 1.0 % (0.0-1.8) 04/15/21 17:01 Metamyelocytes % 0 % 04/15/21 17:01 Myelocytes % 0 % 04/15/21 17:01 Promyelocytes % 0 % 04/15/21 17:01 Blast Cells % 0 % 04/15/21 17:01 Nucleated RBC % Not Reportable 04/15/21 17:01 Seg Neutrophils # Man 10.2 K/mm3 (1.8-7.7) H 04/15/21 17:01 Band Neutrophils # 0.0 K/mm3 04/15/21 17:01 Lymphocytes # (Manual) 1.4 K/mm3 (1.2-5.4) 04/15/21 17:01 Abs React Lymphs (Man) 0.0 K/mm3 04/15/21 17:01 Monocytes # (Manual) 2.3 K/mm3 (0.0-0.8) H 04/15/21 17:01 Eosinophils # (Manual) 0.1 K/mm3 (0.0-0.4) 04/15/21 17:01 Basophils # (Manual) 0.1 K/mm3 (0.0-0.1) 04/15/21 17:01 Metamyelocytes # 0.0 K/mm3 04/15/21 17:01 Myelocytes # 0.0 K/mm3 04/15/21 17:01 Promyelocytes # 0.0 K/mm3 04/15/21 17:01 Blast Cells # 0.0 K/mm3 04/15/21 17:01 WBC Morphology Not Reportable 04/15/21 17:01 Hypersegmented Neuts Not Reportable 04/15/21 17:01 Hyposegmented Neuts Not Reportable 04/15/21 17:01 Hypogranular Neuts Not Reportable 04/15/21 17:01 Smudge Cells Not Reportable 04/15/21 17:01 Toxic Granulation Not Reportable 04/15/21 17:01 Toxic Vacuolation Not Reportable 04/15/21 17:01 Dohle Bodies Not Reportable 04/15/21 17:01 Pelger-Huet Anomaly Not Reportable 04/15/21 17:01 Wilfrid Rods Not Reportable 04/15/21 17:01 Platelet Estimate Not Reportable 04/15/21 17:01 Clumped Platelets Not Reportable 04/15/21 17:01 Plt Clumps, EDTA Not Reportable 04/15/21 17:01 Large Platelets Not Reportable 04/15/21 17:01 Giant Platelets Not Reportable 04/15/21 17:01 Platelet Satelliting Not Reportable 04/15/21 17:01 Plt Morphology Comment Not Reportable 04/15/21 17:01 RBC Morphology Not Reportable 04/15/21 17:01 Dimorphic RBCs Not Reportable 04/15/21 17:01 Polychromasia Not Reportable 04/15/21 17:01 Hypochromasia Rare 04/15/21 17:01 Poikilocytosis Not Reportable 04/15/21 17:01 Anisocytosis 2+ 04/15/21 17:01 Microcytosis Not Reportable 04/15/21 17:01 Macrocytosis Not Reportable 04/15/21 17:01 Spherocytes Not Reportable 04/15/21 17:01 Pappenheimer Bodies Not Reportable 04/15/21 17:01 Sickle Cells Not Reportable 04/15/21 17:01 Target Cells Not Reportable 04/15/21 17:01 Tear Drop Cells Not Reportable 04/15/21 17:01 Ovalocytes Not Reportable 04/15/21 17:01 Helmet Cells Not Reportable 04/15/21 17:01 Muhammad-Cramerton Bodies Not Reportable 04/15/21 17:01 [place] Rings Not Reportable 04/15/21 17:01 Lennon Cells Not Reportable 04/15/21 17:01 Bite Cells Not Reportable 04/15/21 17:01 Crenated Cell Not Reportable 04/15/21 17:01 Elliptocytes Not Reportable 04/15/21 17:01 Acanthocytes (Spur) Not Reportable 04/15/21 17:01 Rouleaux Not Reportable 04/15/21 17:01 Hemoglobin C Crystals Not Reportable 04/15/21 17:01 Schistocytes Not Reportable 04/15/21 17:01 Malaria parasites Not Reportable 04/15/21 17:01 Carlton Bodies Not Reportable 04/15/21 17:01 Hem Pathologist Commnt No 04/15/21 17:01 PT 16.0 Sec. (12.2-14.9) H 04/15/21 17:01 INR 1.15 (0.87-1.13) H 04/15/21 17:01 APTT 28.1 Sec. (24.2-36.6) 04/15/21 17:01 Sodium 128 mmol/L (137-145) L 04/16/21 05:05 Potassium 3.2 mmol/L (3.6-5.0) L D 04/16/21 05:05 Chloride 78.9 mmol/L (98-107) L 04/16/21 05:05 Carbon Dioxide 36 mmol/L (22-30) H 04/16/21 05:05 Anion Gap 16 mmol/L 04/16/21 05:05 BUN 89 mg/dL (9-20) H 04/16/21 05:05 Creatinine 2.5 mg/dL (0.8-1.3) H 04/16/21 05:05 Estimated GFR 33 ml/min 04/16/21 05:05 BUN/Creatinine Ratio 36 % 04/16/21 05:05 Glucose 148 mg/dL (75-100) H 04/16/21 05:05 Calcium 8.6 mg/dL (8.4-10.2) 04/16/21 05:05 Troponin T 0.027 ng/mL (0.00-0.029) 04/15/21 17:01 NT-Pro-B Natriuret Pep 992.6 pg/mL (0-900) H 04/15/21 17:01 Urine Color Straw (Yellow) 04/15/21 Unknown Urine Turbidity Clear (Clear) 04/15/21 Unknown Urine pH 5.0 (5.0-7.0) 04/15/21 Unknown Ur Specific Leroy 1.008 (1.003-1.030) 04/15/21 Unknown Urine Protein <15 mg/dl mg/dL (Negative) 04/15/21 Unknown Urine Glucose (UA) Neg mg/dL (Negative) 04/15/21 Unknown Urine Ketones Neg mg/dL (Negative) 04/15/21 Unknown Urine Blood Neg (Negative) 04/15/21 Unknown Urine Nitrite Neg (Negative) 04/15/21 Unknown Urine Bilirubin Neg (Negative) 04/15/21 Unknown Urine Urobilinogen < 2.0 mg/dL (<2.0) 04/15/21 Unknown Ur Leukocyte Esterase Neg (Negative) 04/15/21 Unknown Urine WBC (Auto) 1.0 /HPF (0.0-6.0) 04/15/21 Unknown Urine RBC (Auto) 2.0 /HPF (0.0-6.0) 04/15/21 Unknown U Epithel Cells (Auto) < 1.0 /HPF (0-13.0) 04/15/21 Unknown Urine Mucus Few /HPF 04/15/21 Unknown Pratt/IV: Voiding Method Toilet Active Medications - Current Medications Current Medications: Generic Name Dose Route Start Last Admin Trade Name Freq PRN Reason Stop Dose Admin Acetaminophen 650 mg 04/15/21 20:46 Acetaminophen 325 Mg Tab PO Q4H PRN Pain MILD(1-3)/Fever >100.5/CLEMENS Albuterol 2.5 mg 04/15/21 20:46 Albuterol 2.5 Mg/3 Ml Nebu IH Q4HRT PRN Shortness Of Breath Albuterol/Ipratropium 1 ampul 04/16/21 12:33 04/16/21 19:43 Ipratropium/Albuterol Sulfate 3 Ml Ampul.Neb IH 1 ampul QID PRN Administration Wheezing Apixaban 5 mg 04/16/21 13:00 04/17/21 09:18 Apixaban 5 Mg Tab PO 5 mg Q12HR RADHA Administration Protocol Arformoterol Tartrate 15 mcg 04/16/21 13:14 Arformoterol 15 Mcg/2 Ml Nebu IH Q12HRT PRN COPD SYMPTOMS Aspirin 81 mg 04/16/21 14:00 04/17/21 09:19 Aspirin Ec 81 Mg Tab PO 81 mg QDAY RADHA Administration Atorvastatin Calcium 40 mg 04/16/21 22:00 04/16/21 23:00 Atorvastatin 40 Mg Tab PO 40 mg QHS RADHA Administration Budesonide 0.5 mg 04/16/21 13:15 Budesonide 0.5 Mg/2 Ml Nebu IH Q12HRT PRN COPD SYMPTOMS Darunavir 800 mg 04/16/21 15:00 04/17/21 09:19 Darunavir 800 Mg Tab PO 800 mg QDAY RADHA Administration Dolutegravir Sodium 50 mg 04/16/21 15:00 04/17/21 09:18 Dolutegravir 50 Mg Tab PO 50 mg DAILY RADHA Administration Emtricitabine 200 mg 04/16/21 15:00 04/17/21 09:18 Emtricitabine 200 Mg Cap PO 200 mg QDAY RADHA Administration Hydromorphone HCl 0.5 mg 04/15/21 20:46 Hydromorphone 1 Mg/1 Ml Inj IV Q23H PRN Pain , Severe (7-10) Latanoprost 1 drops 04/16/21 22:00 04/16/21 23:00 Latanoprost 0.005% Ophth Soln 2.5 Ml OU 1 drops QHS RADHA Administration Linagliptin 5 mg 04/17/21 08:00 04/17/21 09:18 Linagliptin 5 Mg Tab PO 5 mg QDDIAB RADHA Administration Miscellaneous Medication 10 mg 04/17/21 10:00 Empagliflozin [Jardiance] PO QDAY RADHA Miscellaneous Medication 25 mg 04/16/21 22:00 Eplerenone [Eplerenone] PO BID RADHA Ondansetron HCl 4 mg 04/15/21 20:46 Ondansetron 4 Mg/2 Ml Inj IV Q8H PRN Nausea And Vomiting Oxycodone/Acetaminophen 1 tab 04/15/21 20:46 04/17/21 08:20 Oxycodone /Acetaminophen 5-325mg Tab PO 1 tab Q16H PRN Administration Pain, Moderate (4-6) Pyridoxine HCl 25 mg 04/17/21 10:00 04/17/21 09:19 Pyridoxine 50 Mg Tab PO 25 mg QDAY RADHA Administration Sodium Chloride 10 ml 04/15/21 22:00 04/17/21 09:20 Sodium Chloride 0.9% 10 Ml Flush Syringe IV 10 ml BID RADHA Administration Sodium Chloride 10 ml 04/15/21 20:46 04/16/21 23:00 Sodium Chloride 0.9% 10 Ml Flush Syringe IV 10 ml PRN PRN Administration LINE FLUSH Tamsulosin HCl 0.4 mg 04/16/21 14:00 04/17/21 09:18 Tamsulosin 0.4 Mg Cap PO 0.4 mg DAILY RADHA Administration Tenofovir Disoproxil Fumarate 300 mg 04/16/21 15:00 04/17/21 09:20 Tenofovir 300 Mg Tab PO 300 mg QDAY RADHA Administration Thiamine HCl 100 mg 04/17/21 10:00 04/17/21 09:19 Thiamine 100 Mg Tab PO 100 mg QDAY RADHA Administration
[2021-04-17] MEDS ORDERED: NON-FORMULARY EACH (Elviteg/Cob/Emtri/Tenof Alafen [Genvoya Tablet] 1 EACH Tablet) PO SCH (10:00)
[2021-04-17] MEDS ORDERED: NON-FORMULARY EACH (Empagliflozin [Jardiance] 10 MG Tablet) PO SCH (10:00)
[2021-04-17] MEDS ORDERED: DARUNAVIR 800 MG TAB PO SCH (10:00)
[2021-04-17] MEDS ORDERED: PYRIDOXINE HCL 25 MG PO SCH (10:00)
--- NOTE | 2021-04-17 13:12 | Electrocardiograph Report ---
[facility] Test Date: 2021-04-15 Test Time: 18:15:17 Pat Name: JASWINDER CAMACHO Department: Room: A376 1 Gender: M Entry Level Lab Technician: OBED : 1965 Requested By: JOSE PEDERSEN Order Number: [id number] Reading MD: Mic Cai Measurements Intervals [place] Rate: 75 P: 32 DC: 158 QRS: -162 QRSD: 113 T: -17 QT: 394 QTc: 442 Interpretive Statements Sinus rhythm Right axis deviation Anterolateral T wave inversion, consider ischemia No previous ECG available for comparison Electronically Signed On 04-17-2021 13:12:14 EST by Mic Cai
--- NOTE | 2021-04-17 13:17 | Progress Note ---
Assessment and Plan - Patient Problems (1) BARBER (acute kidney injury) Current Visit: Yes Status: Acute Plan to address problem: acute kidney injury is most likely secondary to pre-renal azotemia in the setting of diuretic therapy with torsemide/metolazone. Patient appears well volume controlled at present, will hold off on diuretic for now and reassess renal parameters. Patient has history of hyponatremia on thiazide diuretic, recommend to hold metolazone in the future and add spironolactone or eplerenone to torsemide as maintenance diuretic regimen once renal function stabilizes. Renal ultrasound shows no evidence of obstruction or hydronephrosis. Follow-up carotid ultrasound as well Check urine lytes, urine Protein/Cr ratio. cont supportive care for BARBER/CKD avoid nephrotoxins, IV contrast, NSAIDs. (2) Chronic diastolic heart failure Current Visit: Yes Status: Acute Plan to address problem: management as per cardiology (3) Hyponatremia Current Visit: Yes Status: Acute Plan to address problem: likely hypovolemic nature, hold diuretics for now. Once renal function and volume/BP status stabilizes will restart loop diuretics first (4) Obesity hypoventilation syndrome Current Visit: Yes Status: Acute Plan to address problem: cont CPAP (5) Pulmonary hypertension Current Visit: Yes Status: Acute (6) HIV (human immunodeficiency virus infection) Current Visit: Yes Status: Acute Subjective Date of service: 04/17/21 Principal diagnosis: BARBER on CKD Interval history: Patient is awake, alert, in no acute respiratory distress Objective - Vital Signs Vital signs: Vital Signs - 12hr 04/17/21 10:00 O2 Sat by Pulse 97 Oximetry - General Appearance General appearance: well-developed, well-nourished, appears stated age, obese EENT: ATNC, PERRL, mucous membranes moist Neck: no JVD Respiratory: Present: Decreased Breath Sounds Cardiology: regular, S1S2 Gastrointestinal: normoactive bowel sounds, obese Integumentary: no rash, hyperpigmentation, chronic venous stasis, hyperkeratosis Neurologic: no focal deficit, alert and oriented x3, strength 5/5, CN 3-12 intact - Lab 04/15/21 17:01 04/16/21 05:05 Most recent lab results Calcium 8.6 mg/dL (8.4-10.2) 04/16/21 05:05 Medications & Allergies - Medications Allergies/Adverse Reactions: Allergies No Known Allergies Allergy (Verified 04/15/21 16:18) Home Medications: Home Medications Medication Instructions Recorded Confirmed Last Taken Type Albuterol Mdi (or & Nicu Only) 2 puff IH QID PRN 04/16/21 04/16/21 04/15/21 History [ProAir HFA Inhaler] Apixaban [Eliquis] 5 mg PO BID 04/16/21 04/16/21 04/15/21 History Aspirin EC [Halfprin EC] 81 mg PO QDAY 04/16/21 04/16/21 04/15/21 History Atorvastatin [Lipitor Tab] 40 mg PO DAILY 04/16/21 04/16/21 04/15/21 History Bimatoprost [Lumigan 0.01%] 1 drop OU QHS 04/16/21 04/16/21 04/15/21 History Darunavir [Prezista] 800 mg PO QDAY 04/16/21 04/16/21 04/15/21 History Elviteg/Cob/Emtri/Tenof Alafen 1 tab PO DAILY 04/16/21 04/16/21 04/15/21 History [Genvoya Tablet] Empagliflozin [Jardiance] 10 mg PO QDAY 04/16/21 04/16/21 04/15/21 History Eplerenone 25 mg PO BID 04/16/21 04/16/21 04/15/21 History Fluticasone Propion/Salmeterol 1 each IH BID PRN 04/16/21 04/16/21 04/15/21 History [Wixela 100-50 Inhub] Ipratropium/Albuterol Sulfate 1 ampul IH QID PRN 04/16/21 04/16/21 04/15/21 History [DUONEB *Not for PRN Use*] Linagliptin [Tradjenta] 5 mg PO QDAY 04/16/21 04/16/21 04/15/21 History Potassium Chloride [K-Dur] 40 meq PO QDAY 04/16/21 04/16/21 04/15/21 History Promethazine Dm (Nf) [Phenergan Dm 5 ml PO Q6H PRN 04/16/21 04/16/21 Unknown History 6.25/15 mg 5 ml] Pyridoxine HCl (Vitamin B6) 25 mg PO DAILY 04/16/21 04/16/21 04/15/21 History [Vitamin B-6 25MG TAB] Sildenafil Citrate [Viagra] 100 mg PO PRN PRN 04/16/21 04/16/21 Unknown History Tadalafil [Cialis] 10 mg PO QDAY 04/16/21 04/16/21 Unknown History Tamsulosin [Flomax] 0.4 mg PO DAILY 04/16/21 04/16/21 04/15/21 History Thiamine [Vitamin B-1] 100 mg PO QDAY 04/16/21 04/16/21 04/15/21 History Torsemide [Demadex] 100 mg PO BID 04/16/21 04/16/21 04/15/21 History metOLazone [Zaroxolyn] 5 mg PO QDAY 04/16/21 04/16/21 04/15/21 History Active Medications: Generic Name Dose Route Start Last Admin Trade Name Freq PRN Reason Stop Dose Admin Acetaminophen 650 mg 04/15/21 20:46 Acetaminophen 325 Mg Tab PO Q4H PRN Pain MILD(1-3)/Fever >100.5/CLEMENS Albuterol 2.5 mg 04/15/21 20:46 Albuterol 2.5 Mg/3 Ml Nebu IH Q4HRT PRN Shortness Of Breath Albuterol/Ipratropium 1 ampul 04/16/21 12:33 04/16/21 19:43 Ipratropium/Albuterol Sulfate 3 Ml Ampul.Neb IH 1 ampul QID PRN Administration Wheezing Apixaban 5 mg 04/16/21 13:00 04/17/21 09:18 Apixaban 5 Mg Tab PO 5 mg Q12HR RADHA Administration Protocol Arformoterol Tartrate 15 mcg 04/16/21 13:14 Arformoterol 15 Mcg/2 Ml Nebu IH Q12HRT PRN COPD SYMPTOMS Aspirin 81 mg 04/16/21 14:00 04/17/21 09:19 Aspirin Ec 81 Mg Tab PO 81 mg QDAY RADHA Administration Atorvastatin Calcium 40 mg 04/16/21 22:00 04/16/21 23:00 Atorvastatin 40 Mg Tab PO 40 mg QHS RADHA Administration Budesonide 0.5 mg 04/16/21 13:15 Budesonide 0.5 Mg/2 Ml Nebu IH Q12HRT PRN COPD SYMPTOMS Darunavir 800 mg 04/16/21 15:00 04/17/21 09:19 Darunavir 800 Mg Tab PO 800 mg QDAY RADHA Administration Dolutegravir Sodium 50 mg 04/16/21 15:00 04/17/21 09:18 Dolutegravir 50 Mg Tab PO 50 mg DAILY RADHA Administration Emtricitabine 200 mg 04/16/21 15:00 04/17/21 09:18 Emtricitabine 200 Mg Cap PO 200 mg QDAY RADHA Administration Hydromorphone HCl 0.5 mg 04/15/21 20:46 Hydromorphone 1 Mg/1 Ml Inj IV Q23H PRN Pain , Severe (7-10) Latanoprost 1 drops 04/16/21 22:00 04/16/21 23:00 Latanoprost 0.005% Ophth Soln 2.5 Ml OU 1 drops QHS RADHA Administration Linagliptin 5 mg 04/17/21 08:00 04/17/21 09:18 Linagliptin 5 Mg Tab PO 5 mg QDDIAB RADHA Administration Miscellaneous Medication 10 mg 04/17/21 10:00 Empagliflozin [Jardiance] PO QDAY RADHA Miscellaneous Medication 25 mg 04/16/21 22:00 Eplerenone [Eplerenone] PO BID RADHA Ondansetron HCl 4 mg 04/15/21 20:46 Ondansetron 4 Mg/2 Ml Inj IV Q8H PRN Nausea And Vomiting Oxycodone/Acetaminophen 1 tab 04/15/21 20:46 04/17/21 08:20 Oxycodone /Acetaminophen 5-325mg Tab PO 1 tab Q16H PRN Administration Pain, Moderate (4-6) Pyridoxine HCl 25 mg 04/17/21 10:00 04/17/21 09:19 Pyridoxine 50 Mg Tab PO 25 mg QDAY RADAH Administration Sodium Chloride 10 ml 04/15/21 22:00 04/17/21 09:20 Sodium Chloride 0.9% 10 Ml Flush Syringe IV 10 ml BID RADHA Administration Sodium Chloride 10 ml 04/15/21 20:46 04/16/21 23:00 Sodium Chloride 0.9% 10 Ml Flush Syringe IV 10 ml PRN PRN Administration LINE FLUSH Tamsulosin HCl 0.4 mg 04/16/21 14:00 04/17/21 09:18 Tamsulosin 0.4 Mg Cap PO 0.4 mg DAILY RADHA Administration Tenofovir Disoproxil Fumarate 300 mg 04/16/21 15:00 04/17/21 09:20 Tenofovir 300 Mg Tab PO 300 mg QDAY RADHA Administration Thiamine HCl 100 mg 04/17/21 10:00 04/17/21 09:19 Thiamine 100 Mg Tab PO 100 mg QDAY RADHA Administration
--- NOTE | 2021-04-17 13:46 | Progress Note ---
Assessment and Plan Patient is a 55-year-old male with a past medical history of HFpEF, COPD, CKD, diabetes, hypertension, history of NE, pulmonary hypertension, history of DVT, and HIV presents to the ED for complaint of passing out Syncope Fall Hyponatremia Acute on chronic HFpEF COPD BARBER on CKD-nephrology following Hypertension Pulmonary hypertension History of DVT-on Eliquis as an outpatient HIV Diabetes Echo 11/20/2020 -this is a technically difficult study with limited views despite best efforts and use of contrast. Mildly enlarged right ventricular cavity size. Mildly reduced right ventricular systolic function. Normal left ventricular size. Mild concentric left ventricular hypertrophy. In apical 3 there is some septal dysynchrony/early relaxation. Normal global left ventricular systolic function. Left ventricular ejection fraction is 55-60%. Mild tricuspid regurgitation. Mild pulmonic valve insufficiency. Mildly dilated atria. Estimated right ventricular systolic pressure is moderately elevated at 52.8 mmHg.The estimated right ventricular systolic pressure is moderately elevated right ventricular systolic pressure at 52.8 mmHg Outpatient medications: Metolazone 5 mg p.o. daily, Eliquis, torsemide 100 mg p.o. twice daily, atorvastatin 40 mg p.o. nightly, aspirin Plan: BNP noted to be elevated. Patient had echo done as an outpatient in our office yesterday waiting for echo results Patient appears euvolemic on exam however will defer to nephrology for volume management due to renal function Continue with Eliquis, aspirin, atorvastatin Patient in conjunction with Dr. Mcfadden who agrees with this plan of care - Patient Problems (1) Acute kidney injury superimposed on CKD Current Visit: Yes Status: Acute (2) COPD (chronic obstructive pulmonary disease) Current Visit: Yes Status: Acute (3) Diabetes Current Visit: Yes Status: Acute (4) Cardiorenal syndrome Current Visit: Yes Status: Acute (5) Hyponatremia Current Visit: Yes Status: Acute (6) Pulmonary hypertension Current Visit: Yes Status: Acute (7) Recurrent syncope Current Visit: Yes Status: Acute Subjective Date of service: 04/17/21 Principal diagnosis: BARBER on CKD Interval history: Patient resting in bed in no acute distress Sinus 60-70 on monitor with no event Objective Vital Signs Temp Pulse Pulse Resp Resp BP Pulse Ox 04/17/21 10:00 97 04/17/21 00:00 18 99 04/16/21 22:07 97.3 F L 68 18 115/74 90 04/16/21 20:13 99 04/16/21 19:43 84 18 04/16/21 17:01 98.6 F 66 24 96/55 90 - Physical Examination HEENT: Positive: PERRL Neck: Positive: neck supple Cardiac: Positive: Reg Rate and Rhythm Lungs: Positive: Normal Breath Sounds Neuro: Positive: Grossly Intact Abdomen: Positive: Soft Skin: Negative: Rash, Suspicious Lesions, Ulceration Extremities: Present: upper extr. pulses. Absent: edema - Imaging and Cardiology Echo: pending, report reviewed - Telemetry EKG Rhythm: Sinus Rhythm - EKG Sinus rhythms and dysrhythmias: sinus rhythm AV and intraventricular conduction: right bundle branch block
[2021-04-17 13:51] LABS: Creatinine,Urine 51.5 mg/dL (0.1-20.0)
[2021-04-17] MEDS ORDERED: POTASSIUM CHLORIDE ER 20 MEQ TAB PO SCH (14:43)
[2021-04-17 15:35] LABS: Calcium 9.6 mg/dL (8.4-10.2)
[2021-04-17] MEDS: LATANOPROST 0.005% OPHTH SOLN 2.5 ML OU SCH (22:05)
[2021-04-17] MEDS ORDERED: BACITRACIN ZINC OINT 28.4 GM TP PRN (23:14)
[2021-04-18 06:34] LABS: Mean Corpuscular HGB Conc 30 % (32-34); Mean Corpuscular Volume 85 fl (84-94); Platelet Count 270 K/mm3 (140-440); Red Blood Count 4.21 M/mm3 (3.65-5.03)
[2021-04-18 06:35] LABS: Hemoglobin 10.8 gm/dl (11.8-15.2)
[2021-04-18] MEDS: EMTRICITABINE 200 MG CAP PO SCH (09:28)
[2021-04-18] MEDS: oxyCODONE /ACETAMINOPHEN 5-325MG TAB PO PRN ×2 (09:28→15:47)
[2021-04-18] MEDS: LINAGLIPTIN 5 MG TAB PO SCH (09:28)
[2021-04-18] MEDS: ASPIRIN EC 81 MG TAB PO SCH (09:29)
[2021-04-18] MEDS: THIAMINE 100 MG TAB PO SCH (09:29)
[2021-04-18] MEDS: DARUNAVIR 800 MG TAB PO SCH (09:29)
[2021-04-18] MEDS: APIXABAN 5 MG TAB PO SCH ×2 (09:29→21:34)
[2021-04-18] MEDS: DOLUTEGRAVIR 50 MG TAB PO SCH (09:29)
[2021-04-18] MEDS: PYRIDOXINE 50 MG TAB PO SCH (09:29)
[2021-04-18] MEDS: TAMSULOSIN 0.4 MG CAP PO SCH (09:29)
[2021-04-18] MEDS: TENOFOVIR 300 MG TAB PO SCH (09:30)
--- NOTE | 2021-04-18 09:52 | Progress Note ---
Assessment and Plan Assessment and plan: 55 YO Male with Obesity Hypoventilation Syndrome, COPD, CHF, PE on Therapeutic Anticoagulation with Eliquis, Pulmonary HTN presents to ED for evaluation of a syncopal episode after coughing. Patient states that he has experienced generalized weakness, shortness of breath over the past 1 week. Patient acknowledges 10 pound weight gain over the past 1 week, orthopnea, paroxysmal nocturnal dyspnea, decreased exercise tolerance. The patient was admitted with diagnosis of CHF decompensation, BARBER with ATN, Cardiorenal syndrome as well as Pulmonary Hypertension to telemetry and initiated on CHF protocol. Acute heart failure exacerbation Acute on chronic hypoxic respiratory failure. Patient with home oxygen of 3 L. Cardiorenal syndrome Acute kidney injury with ATN Pulmonary hypertension Obesity hypoventilation syndrome Hyponatremia Deglutition syncope 04/16/2021. We will check echocardiogram to assess systolic and diastolic function. Consult cardiology for further evaluation. Nephrology consulted for BARBER. Renal ultrasound shows no evidence of obstruction or hydronephrosis. Follow-up carotid ultrasound as well 04/17/2021. Cardiology reports patient had echocardiogram done as an outpatient in their office 2 days ago. Await echo results. Continue Eliquis, aspirin and atorvastatin. Nephrology reports acute kidney injury is most likely secondary to pre-renal azotemia in the setting of diuretic therapy with torsemide/metolazone. Patient appears well volume controlled at present, will hold off on diuretic for now and reassess renal parameters. Patient has history of hyponatremia on thiazide diuretic, nephrology recommends to hold metolazone in the future. Spironolactone will likely be added to diuretic regimen once kidney function stabilizes. Renal ultrasound shows no evidence of obstruction or hydronephrosis. Carotid ultrasound is negative. 04/18/2021. Patient currently requiring 3 L O2 which is at his baseline for home O2. Continue Eliquis, aspirin and atorvastatin. Patient had some improvement in creatinine. Await follow-up BMP this morning History Interval history: No new issues overnight Hospitalist Physical - Constitutional Vitals: Temp Pulse Resp BP Pulse Ox 98.0 F 73 20 115/66 88 04/18/21 05:11 04/18/21 05:11 04/18/21 05:11 04/18/21 05:11 04/18/21 05:11 General appearance: Present: no acute distress - EENT Eyes: Present: PERRL, EOM intact ENT: hearing intact, clear oral mucosa, dentition normal - Neck Neck: Present: supple, normal ROM - Respiratory Respiratory effort: normal Respiratory: bilateral: CTA - Cardiovascular Rhythm: regular Heart Sounds: Present: S1 & S2. Absent: gallop, rub - Extremities Extremities: no ischemia, No edema, Full ROM - Abdominal General gastrointestinal: soft, non-tender, non-distended, normal bowel sounds - Integumentary Integumentary: Present: clear, warm, dry - Neurologic Neurologic: CNII-XII intact, moves all extremities HEART Score - HEART Score Troponin: Troponin T 0.027 ng/mL (0.00-0.029) 04/15/21 17:01 Results - Labs CBC & Chem 7: 04/18/21 06:20 04/17/21 13:54 Labs: Laboratory Last Values WBC 8.0 K/mm3 (4.5-11.0) 04/18/21 06:20 RBC 4.21 M/mm3 (3.65-5.03) 04/18/21 06:20 Hgb 10.8 gm/dl (11.8-15.2) L 04/18/21 06:20 Hct 36.0 % (35.5-45.6) 04/18/21 06:20 MCV 85 fl (84-94) 04/18/21 06:20 MCH 26 pg (28-32) L 04/18/21 06:20 MCHC 30 % (32-34) L 04/18/21 06:20 RDW 23.0 % (13.2-15.2) H 04/18/21 06:20 Plt Count 270 K/mm3 (140-440) 04/18/21 06:20 Add Manual Diff Complete 04/15/21 17:01 Total Counted 100 04/15/21 17:01 Seg Neuts % (Manual) 72.0 % (40.0-70.0) H 04/15/21 17:01 Band Neutrophils % 0 % 04/15/21 17:01 Lymphocytes % (Manual) 10.0 % (13.4-35.0) L 04/15/21 17:01 Reactive Lymphs % (Man) 0 % 04/15/21 17:01 Monocytes % (Manual) 16.0 % (0.0-7.3) H 04/15/21 17:01 Eosinophils % (Manual) 1.0 % (0.0-4.3) 04/15/21 17:01 Basophils % (Manual) 1.0 % (0.0-1.8) 04/15/21 17:01 Metamyelocytes % 0 % 04/15/21 17:01 Myelocytes % 0 % 04/15/21 17:01 Promyelocytes % 0 % 04/15/21 17:01 Blast Cells % 0 % 04/15/21 17:01 Nucleated RBC % Not Reportable 04/15/21 17:01 Seg Neutrophils # Man 10.2 K/mm3 (1.8-7.7) H 04/15/21 17:01 Band Neutrophils # 0.0 K/mm3 04/15/21 17:01 Lymphocytes # (Manual) 1.4 K/mm3 (1.2-5.4) 04/15/21 17:01 Abs React Lymphs (Man) 0.0 K/mm3 04/15/21 17:01 Monocytes # (Manual) 2.3 K/mm3 (0.0-0.8) H 04/15/21 17:01 Eosinophils # (Manual) 0.1 K/mm3 (0.0-0.4) 04/15/21 17:01 Basophils # (Manual) 0.1 K/mm3 (0.0-0.1) 04/15/21 17:01 Metamyelocytes # 0.0 K/mm3 04/15/21 17:01 Myelocytes # 0.0 K/mm3 04/15/21 17:01 Promyelocytes # 0.0 K/mm3 04/15/21 17:01 Blast Cells # 0.0 K/mm3 04/15/21 17:01 WBC Morphology Not Reportable 04/15/21 17:01 Hypersegmented Neuts Not Reportable 04/15/21 17:01 Hyposegmented Neuts Not Reportable 04/15/21 17:01 Hypogranular Neuts Not Reportable 04/15/21 17:01 Smudge Cells Not Reportable 04/15/21 17:01 Toxic Granulation Not Reportable 04/15/21 17:01 Toxic Vacuolation Not Reportable 04/15/21 17:01 Dohle Bodies Not Reportable 04/15/21 17:01 Pelger-Huet Anomaly Not Reportable 04/15/21 17:01 Wilfrid Rods Not Reportable 04/15/21 17:01 Platelet Estimate Not Reportable 04/15/21 17:01 Clumped Platelets Not Reportable 04/15/21 17:01 Plt Clumps, EDTA Not Reportable 04/15/21 17:01 Large Platelets Not Reportable 04/15/21 17:01 Giant Platelets Not Reportable 04/15/21 17:01 Platelet Satelliting Not Reportable 04/15/21 17:01 Plt Morphology Comment Not Reportable 04/15/21 17:01 RBC Morphology Not Reportable 04/15/21 17:01 Dimorphic RBCs Not Reportable 04/15/21 17:01 Polychromasia Not Reportable 04/15/21 17:01 Hypochromasia Rare 04/15/21 17:01 Poikilocytosis Not Reportable 04/15/21 17:01 Anisocytosis 2+ 04/15/21 17:01 Microcytosis Not Reportable 04/15/21 17:01 Macrocytosis Not Reportable 04/15/21 17:01 Spherocytes Not Reportable 04/15/21 17:01 Pappenheimer Bodies Not Reportable 04/15/21 17:01 Sickle Cells Not Reportable 04/15/21 17:01 Target Cells Not Reportable 04/15/21 17:01 Tear Drop Cells Not Reportable 04/15/21 17:01 Ovalocytes Not Reportable 04/15/21 17:01 Helmet Cells Not Reportable 04/15/21 17:[address] [place] Bodies Not Reportable 04/15/21 17:01 [place] Rings Not Reportable 04/15/21 17:01 Tai Cells Not Reportable 04/15/21 17:01 Bite Cells Not Reportable 04/15/21 17:01 Crenated Cell Not Reportable 04/15/21 17:01 Elliptocytes Not Reportable 04/15/21 17:01 Acanthocytes (Spur) Not Reportable 04/15/21 17:01 Rouleaux Not Reportable 04/15/21 17:01 Hemoglobin C Crystals Not Reportable 04/15/21 17:01 Schistocytes Not Reportable 04/15/21 17:01 Malaria parasites Not Reportable 04/15/21 17:01 [place] Bodies Not Reportable 04/15/21 17:01 Hem Pathologist Commnt No 04/15/21 17:01 PT 16.0 Sec. (12.2-14.9) H 04/15/21 17:01 INR 1.15 (0.87-1.13) H 04/15/21 17:01 APTT 28.1 Sec. (24.2-36.6) 04/15/21 17:01 Sodium 131 mmol/L (137-145) L 04/17/21 13:54 Potassium 3.4 mmol/L (3.6-5.0) L 04/17/21 13:54 Chloride 82.1 mmol/L (98-107) L 04/17/21 13:54 Carbon Dioxide 36 mmol/L (22-30) H 04/17/21 13:54 Anion Gap 16 mmol/L 04/17/21 13:54 BUN 77 mg/dL (9-20) H 04/17/21 13:54 Creatinine 1.8 mg/dL (0.8-1.3) H 04/17/21 13:54 Estimated GFR 48 ml/min 04/17/21 13:54 BUN/Creatinine Ratio 43 % 04/17/21 13:54 Glucose 224 mg/dL (75-100) H 04/17/21 13:54 Calcium 9.6 mg/dL (8.4-10.2) 04/17/21 13:54 Troponin T 0.027 ng/mL (0.00-0.029) 04/15/21 17:01 NT-Pro-B Natriuret Pep 992.6 pg/mL (0-900) H 04/15/21 17:01 Urine Color Straw (Yellow) 04/15/21 Unknown Urine Turbidity Clear (Clear) 04/15/21 Unknown Urine pH 5.0 (5.0-7.0) 04/15/21 Unknown Ur Specific [place] 1.008 (1.003-1.030) 04/15/21 Unknown Urine Protein <15 mg/dl mg/dL (Negative) 04/15/21 Unknown Urine Glucose (UA) Neg mg/dL (Negative) 04/15/21 Unknown Urine Ketones Neg mg/dL (Negative) 04/15/21 Unknown Urine Blood Neg (Negative) 04/15/21 Unknown Urine Nitrite Neg (Negative) 04/15/21 Unknown Urine Bilirubin Neg (Negative) 04/15/21 Unknown Urine Urobilinogen < 2.0 mg/dL (<2.0) 04/15/21 Unknown Ur Leukocyte Esterase Neg (Negative) 04/15/21 Unknown Urine WBC (Auto) 1.0 /HPF (0.0-6.0) 04/15/21 Unknown Urine RBC (Auto) 2.0 /HPF (0.0-6.0) 04/15/21 Unknown U Epithel Cells (Auto) < 1.0 /HPF (0-13.0) 04/15/21 Unknown Urine Mucus Few /HPF 04/15/21 Unknown Urine Creatinine 51.5 mg/dL (0.1-20.0) H 04/17/21 10:30 Urine Sodium 21 mmol/L 04/17/21 10:30 Urine Total Protein 7 mg/dL (5-11.8) 04/17/21 10:30 Pratt/IV: Voiding Method Toilet Active Medications - Current Medications Current Medications: Generic Name Dose Route Start Last Admin Trade Name Freq PRN Reason Stop Dose Admin Acetaminophen 650 mg 04/15/21 20:46 Acetaminophen 325 Mg Tab PO Q4H PRN Pain MILD(1-3)/Fever >100.5/CLEMENS Albuterol 2.5 mg 04/15/21 20:46 Albuterol 2.5 Mg/3 Ml Nebu IH Q4HRT PRN Shortness Of Breath Albuterol/Ipratropium 1 ampul 04/16/21 12:33 04/16/21 19:43 Ipratropium/Albuterol Sulfate 3 Ml Ampul.Neb IH 1 ampul QID PRN Administration Wheezing Apixaban 5 mg 04/16/21 13:00 04/18/21 09:29 Apixaban 5 Mg Tab PO 5 mg Q12HR RADHA Administration Protocol Arformoterol Tartrate 15 mcg 04/16/21 13:14 Arformoterol 15 Mcg/2 Ml Nebu IH Q12HRT PRN COPD SYMPTOMS Aspirin 81 mg 04/16/21 14:00 04/18/21 09:29 Aspirin Ec 81 Mg Tab PO 81 mg QDAY RADHA Administration Atorvastatin Calcium 40 mg 04/16/21 22:00 04/17/21 21:55 Atorvastatin 40 Mg Tab PO 40 mg QHS RADHA Administration Bacitracin 1 applic 04/17/21 23:14 04/18/21 00:30 Bacitracin Zinc Oint 28.4 Gm TP 1 applic PRN PRN Administration Wound Care Budesonide 0.5 mg 04/16/21 13:15 Budesonide 0.5 Mg/2 Ml Nebu IH Q12HRT PRN COPD SYMPTOMS Darunavir 800 mg 04/16/21 15:00 04/18/21 09:29 Darunavir 800 Mg Tab PO 800 mg QDAY RADHA Administration Dolutegravir Sodium 50 mg 04/16/21 15:00 04/18/21 09:29 Dolutegravir 50 Mg Tab PO 50 mg DAILY RADHA Administration Emtricitabine 200 mg 04/16/21 15:00 04/18/21 09:28 Emtricitabine 200 Mg Cap PO 200 mg QDAY RADHA Administration Hydromorphone HCl 0.5 mg 04/15/21 20:46 Hydromorphone 1 Mg/1 Ml Inj IV Q23H PRN Pain , Severe (7-10) Latanoprost 1 drops 04/16/21 22:00 04/17/21 22:05 Latanoprost 0.005% Ophth Soln 2.5 Ml OU 1 drops QHS RADHA Administration Linagliptin 5 mg 04/17/21 08:00 04/18/21 09:28 Linagliptin 5 Mg Tab PO 5 mg QDDIAB RADHA Administration Miscellaneous Medication 10 mg 04/17/21 10:00 Empagliflozin [Jardiance] PO QDAY RADHA Miscellaneous Medication 25 mg 04/16/21 22:00 Eplerenone [Eplerenone] PO BID RADHA Ondansetron HCl 4 mg 04/15/21 20:46 Ondansetron 4 Mg/2 Ml Inj IV Q8H PRN Nausea And Vomiting Oxycodone/Acetaminophen 1 tab 04/15/21 20:46 04/18/21 09:28 Oxycodone /Acetaminophen 5-325mg Tab PO 1 tab Q16H PRN Administration Pain, Moderate (4-6) Pyridoxine HCl 25 mg 04/17/21 10:00 04/18/21 09:29 Pyridoxine 50 Mg Tab PO 25 mg QDAY RADHA Administration Sodium Chloride 10 ml 04/15/21 22:00 04/18/21 09:30 Sodium Chloride 0.9% 10 Ml Flush Syringe IV 10 ml BID RADHA Administration Sodium Chloride 10 ml 04/15/21 20:46 04/16/21 23:00 Sodium Chloride 0.9% 10 Ml Flush Syringe IV 10 ml PRN PRN Administration LINE FLUSH Tamsulosin HCl 0.4 mg 04/16/21 14:00 04/18/21 09:29 Tamsulosin 0.4 Mg Cap PO 0.4 mg DAILY RADHA Administration Tenofovir Disoproxil Fumarate 300 mg 04/16/21 15:00 04/18/21 09:30 Tenofovir 300 Mg Tab PO 300 mg QDAY RADHA Administration Thiamine HCl 100 mg 04/17/21 10:00 04/18/21 09:29 Thiamine 100 Mg Tab PO 100 mg QDAY RADHA Administration
[2021-04-18 10:07] LABS: BUN/Creatinine Ratio 53; Blood Urea Nitrogen 74 mg/dL (9-20); Hemolysis Index 11
[2021-04-18] MEDS ORDERED: DEXTROSE 50% IN WATER (25GM) 50 ML SYRINGE IV PRN (12:49)
--- NOTE | 2021-04-18 13:23 | Progress Note ---
Assessment and Plan Patient is a 55-year-old male with a past medical history of HFpEF, COPD, CKD, diabetes, hypertension, history of SC, pulmonary hypertension, history of DVT, and HIV presents to the ED for complaint of passing out Syncope Fall Hyponatremia Acute on chronic HFpEF COPD BARBER on CKD-nephrology following Hypertension Pulmonary hypertension History of DVT-on Eliquis as an outpatient HIV Diabetes Echo 04/15/2021-EF 50 to 55%. Mild septal hypertrophy. Right ventricle is mildly dilated. Right ventricle systolic function is normal. There is an atrial septal aneurysm. Mild tricuspid regurgitation. Severe pulmonary hypertension Echo 11/20/2020 -this is a technically difficult study with limited views despite best efforts and use of contrast. Mildly enlarged right ventricular cavity size. Mildly reduced right ventricular systolic function. Normal left ventricular si ze. Mild concentric left ventricular hypertrophy. In apical 3 there is some septal dysynchrony/early relaxation. Normal global left ventricular systolic function. Left ventricular ejection fraction is 55-60%. Mild tricuspid regurgitation. Mild pulmonic valve insufficiency. Mildly dilated atria. Estimated right ventricular systolic pressure is moderately elevated at 52.8 mmHg.The estimated right ventricular systolic pressure is moderately elevated right ventricular systolic pressure at 52.8 mmHg Outpatient medications: Metolazone 5 mg p.o. daily, Eliquis, torsemide 100 mg p.o. twice daily, atorvastatin 40 mg p.o. nightly, aspirin Plan: Echo results noted above Due to severe pulmonary hypertension found on echo recommend outpatient pulmonology consult Per nephrology BARBER likely secondary to diuretic therapy of torsemide/metolazone. Recommend spironolactone or eplerenone to torsemide as maintenance diuretic regimen once renal function stabilizes. Continue with Eliquis, aspirin, atorvastatin will see as needed over weekend Due to syncopal episode patient should follow-up on 04/29/2021 at 10 AM at our [place] location for 2-week Holter monitor. Patient should follow-up with Dr. Padilla, [facility] duplication specialist, 05/14/2021 at 2:30 PM at our [place] location. Phone #[phone] Patient in conjunction with Dr. Mcfadden who agrees with this plan of care - Patient Problems (1) Acute kidney injury superimposed on CKD Current Visit: Yes Status: Acute (2) COPD (chronic obstructive pulmonary disease) Current Visit: Yes Status: Acute (3) Diabetes Current Visit: Yes Status: Acute (4) Cardiorenal syndrome Current Visit: Yes Status: Acute (5) Hyponatremia Current Visit: Yes Status: Acute (6) Pulmonary hypertension Current Visit: Yes Status: Acute (7) Recurrent syncope Current Visit: Yes Status: Acute Subjective Date of service: 04/18/21 Principal diagnosis: BARBER on CKD Interval history: Patient resting in bed in no acute distress Patient sees more often however patient previously sinus 60-70 on monitor with no event Objective Vital Signs Temp Pulse Resp Resp BP Pulse Ox 04/18/21 10:53 98.0 F 82 22 109/67 94 04/18/21 10:30 93 04/18/21 05:11 98.0 F 73 20 115/66 88 04/18/21 00:00 18 98 04/17/21 23:02 18 04/17/21 22:24 98.0 F 108 H 16 120/66 99 04/17/21 22:18 97.9 F 71 18 110/68 96 04/17/21 22:02 18 04/17/21 22:00 18 04/17/21 19:59 95 04/17/21 17:57 98.2 F 67 22 112/74 95 - Physical Examination General: No Apparent Distress HEENT: Positive: PERRL Neck: Positive: neck supple Cardiac: Positive: Reg Rate and Rhythm Lungs: Positive: Normal Breath Sounds Neuro: Positive: Grossly Intact Abdomen: Positive: Soft Skin: Negative: Rash, Suspicious Lesions, Ulceration Extremities: Present: upper extr. pulses. Absent: edema - Labs and Meds CBC 04/18/21 Range/Units 06:20 WBC 8.0 (4.5-11.0) K/mm3 RBC 4.21 (3.65-5.03) M/mm3 Hgb 10.8 L (11.8-15.2) gm/dl Hct 36.0 (35.5-45.6) % Plt Count 270 (140-440) K/mm3 Comprehensive Metabolic Panel 04/17/21 04/18/21 Range/Units 13:54 09:29 Sodium 131 L 131 L (137-145) mmol/L Potassium 3.4 L 3.3 L (3.6-5.0) mmol/L Chloride 82.1 L 84.2 L (98-107) mmol/L Carbon Dioxide 36 H 33 H (22-30) mmol/L BUN 77 H 74 H (9-20) mg/dL Creatinine 1.8 H 1.4 H (0.8-1.3) mg/dL Glucose 224 H 217 H (75-100) mg/dL Calcium 9.6 9.0 (8.4-10.2) mg/dL - Imaging and Cardiology Echo: report reviewed - Telemetry EKG Rhythm: Sinus Rhythm - EKG Sinus rhythms and dysrhythmias: sinus rhythm AV and intraventricular conduction: right bundle branch block
[2021-04-18] MEDS ORDERED: DEXTROSE 10% *Hypoglycemia IV PRN (13:34)
--- NOTE | 2021-04-18 15:25 | Progress Note ---
Assessment and Plan - Patient Problems (1) BARBER (acute kidney injury) Current Visit: Yes Status: Acute Plan to address problem: acute kidney injury is most likely secondary to pre-renal azotemia in the setting of diuretic therapy with torsemide/metolazone. Renal function improved significantly with holding diuretic regimen. Patient has history of hyponatremia on thiazide diuretic, recommend to hold metolazone in the future. Renal ultrasound shows no evidence of obstruction or hydronephrosis. Given stabilizing renal function will resume torsemide 40mg po qd for volume control and monitor BMP closely. cont supportive care for BARBER/CKD avoid nephrotoxins, IV contrast, NSAIDs. (2) Chronic diastolic heart failure Current Visit: Yes Status: Acute Plan to address problem: will resume torsemide at 40mg po qd for volume control. otherwise management as per cardiology (3) Hyponatremia Current Visit: Yes Status: Acute Plan to address problem: likely hypovolemic nature, Na improved with holding metolazone (4) Obesity hypoventilation syndrome Current Visit: Yes Status: Acute Plan to address problem: pt is currently not on CPAP, he will need outpatient pulmonary follow up for sleep study and ERI management (5) Pulmonary hypertension Current Visit: Yes Status: Acute (6) HIV (human immunodeficiency virus infection) Current Visit: Yes Status: Acute Plan to address problem: currently on ART Subjective Date of service: 04/18/21 Principal diagnosis: BARBER on CKD Interval history: Patient is awake, alert, in no acute respiratory distress, denies SOB, CP, fever, chills, n/v/d, abd pain, diarrhea, dysuria Objective - Vital Signs Vital signs: Vital Signs - 12hr 04/18/21 04/18/21 04/18/21 05:11 10:30 10:53 Temperature 98.0 F 98.0 F Pulse Rate 73 82 Respiratory 20 22 Rate Blood Pressure 115/66 109/67 O2 Sat by Pulse 88 93 94 Oximetry 04/18/21 12:00 Temperature Pulse Rate Respiratory Rate Blood Pressure O2 Sat by Pulse 95 Oximetry - General Appearance General appearance: well-developed, well-nourished, appears stated age, obese EENT: ATNC, PERRL, mucous membranes moist Neck: no JVD Respiratory: Present: Decreased Breath Sounds Cardiology: regular, S1S2 Gastrointestinal: normoactive bowel sounds Integumentary: no rash, hyperpigmentation, chronic venous stasis, hyperkeratosis Neurologic: no focal deficit, alert and oriented x3, strength 5/5, CN 3-12 intact Psychiatric: mood/affect appropriate, cooperative - Lab 04/18/21 06:20 04/18/21 09:29 Most recent lab results Calcium 9.0 mg/dL (8.4-10.2) 04/18/21 09:29 Urine Creatinine 51.5 mg/dL (0.1-20.0) H 04/17/21 10:30 Urine Sodium 21 mmol/L 04/17/21 10:30 Urine Total Protein 7 mg/dL (5-11.8) 04/17/21 10:30 Medications & Allergies - Medications Allergies/Adverse Reactions: Allergies No Known Allergies Allergy (Verified 04/15/21 16:18) Home Medications: Home Medications Medication Instructions Recorded Confirmed Last Taken Type Albuterol Mdi (or & Nicu Only) 2 puff IH QID PRN 04/16/21 04/16/21 04/15/21 History [ProAir HFA Inhaler] Apixaban [Eliquis] 5 mg PO BID 04/16/21 04/16/21 04/15/21 History Aspirin EC [Halfprin EC] 81 mg PO QDAY 04/16/21 04/16/21 04/15/21 History Atorvastatin [Lipitor Tab] 40 mg PO DAILY 04/16/21 04/16/21 04/15/21 History Bimatoprost [Lumigan 0.01%] 1 drop OU QHS 04/16/21 04/16/21 04/15/21 History Darunavir [Prezista] 800 mg PO QDAY 04/16/21 04/16/21 04/15/21 History Elviteg/Cob/Emtri/Tenof Alafen 1 tab PO DAILY 04/16/21 04/16/21 04/15/21 History [Genvoya Tablet] Empagliflozin [Jardiance] 10 mg PO QDAY 04/16/21 04/16/21 04/15/21 History Eplerenone 25 mg PO BID 04/16/21 04/16/21 04/15/21 History Fluticasone Propion/Salmeterol 1 each IH BID PRN 04/16/21 04/16/21 04/15/21 History [Wixela 100-50 Inhub] Ipratropium/Albuterol Sulfate 1 ampul IH QID PRN 04/16/21 04/16/21 04/15/21 History [DUONEB *Not for PRN Use*] Linagliptin [Tradjenta] 5 mg PO QDAY 04/16/21 04/16/21 04/15/21 History Potassium Chloride [K-Dur] 40 meq PO QDAY 04/16/21 04/16/21 04/15/21 History Promethazine Dm (Nf) [Phenergan Dm 5 ml PO Q6H PRN 04/16/21 04/16/21 Unknown History 6.25/15 mg 5 ml] Pyridoxine HCl (Vitamin B6) 25 mg PO DAILY 04/16/21 04/16/21 04/15/21 History [Vitamin B-6 25MG TAB] Sildenafil Citrate [Viagra] 100 mg PO PRN PRN 04/16/21 04/16/21 Unknown History Tadalafil [Cialis] 10 mg PO QDAY 04/16/21 04/16/21 Unknown History Tamsulosin [Flomax] 0.4 mg PO DAILY 04/16/21 04/16/21 04/15/21 History Thiamine [Vitamin B-1] 100 mg PO QDAY 04/16/21 04/16/21 04/15/21 History Torsemide [Demadex] 100 mg PO BID 04/16/21 04/16/21 04/15/21 History metOLazone [Zaroxolyn] 5 mg PO QDAY 04/16/21 04/16/21 04/15/21 History Active Medications: Generic Name Dose Route Start Last Admin Trade Name Freq PRN Reason Stop Dose Admin Acetaminophen 650 mg 04/15/21 20:46 Acetaminophen 325 Mg Tab PO Q4H PRN Pain MILD(1-3)/Fever >100.5/CLEMENS Albuterol 2.5 mg 04/15/21 20:46 Albuterol 2.5 Mg/3 Ml Nebu IH Q4HRT PRN Shortness Of Breath Albuterol/Ipratropium 1 ampul 04/16/21 12:33 04/16/21 19:43 Ipratropium/Albuterol Sulfate 3 Ml Ampul.Neb IH 1 ampul QID PRN Administration Wheezing Apixaban 5 mg 04/16/21 13:00 04/18/21 09:29 Apixaban 5 Mg Tab PO 5 mg Q12HR RADHA Administration Protocol Arformoterol Tartrate 15 mcg 04/16/21 13:14 Arformoterol 15 Mcg/2 Ml Nebu IH Q12HRT PRN COPD SYMPTOMS Aspirin 81 mg 04/16/21 14:00 04/18/21 09:29 Aspirin Ec 81 Mg Tab PO 81 mg QDAY RADHA Administration Atorvastatin Calcium 40 mg 04/16/21 22:00 04/17/21 21:55 Atorvastatin 40 Mg Tab PO 40 mg QHS RADHA Administration Bacitracin 1 applic 04/17/21 23:14 04/18/21 00:30 Bacitracin Zinc Oint 28.4 Gm TP 1 applic PRN PRN Administration Wound Care Budesonide 0.5 mg 04/16/21 13:15 Budesonide 0.5 Mg/2 Ml Nebu IH Q12HRT PRN COPD SYMPTOMS Darunavir 800 mg 04/16/21 15:00 04/18/21 09:29 Darunavir 800 Mg Tab PO 800 mg QDAY RADHA Administration Dextrose 0 ml 04/18/21 13:34 Dextrose 10% *Hypoglycemia IV PRN PRN Hypoglycemia Dolutegravir Sodium 50 mg 04/16/21 15:00 04/18/21 09:29 Dolutegravir 50 Mg Tab PO 50 mg DAILY RADHA Administration Emtricitabine 200 mg 04/16/21 15:00 04/18/21 09:28 Emtricitabine 200 Mg Cap PO 200 mg QDAY RADHA Administration Hydromorphone HCl 0.5 mg 04/15/21 20:46 Hydromorphone 1 Mg/1 Ml Inj IV Q23H PRN Pain , Severe (7-10) Insulin Human Regular 0 units 04/18/21 16:30 Insulin Regular, Human 100 Units/1 Ml SUB-Q ACHS RADHA Protocol Latanoprost 1 drops 04/16/21 22:00 04/17/21 22:05 Latanoprost 0.005% Ophth Soln 2.5 Ml OU 1 drops QHS RADHA Administration Linagliptin 5 mg 04/17/21 08:00 04/18/21 09:28 Linagliptin 5 Mg Tab PO 5 mg QDDIAB RADHA Administration Miscellaneous Medication 10 mg 04/17/21 10:00 Empagliflozin [Jardiance] PO QDAY [facility] Miscellaneous Medication 25 mg 04/16/21 22:00 Eplerenone [Eplerenone] PO BID [facility] Ondansetron HCl 4 mg 04/15/21 20:46 Ondansetron 4 Mg/2 Ml Inj IV Q8H PRN Nausea And Vomiting Oxycodone/Acetaminophen 1 tab 04/15/21 20:46 04/18/21 09:28 Oxycodone /Acetaminophen 5-325mg Tab PO 1 tab Q16H PRN Administration Pain, Moderate (4-6) Pyridoxine HCl 25 mg 04/17/21 10:00 04/18/21 09:29 Pyridoxine 50 Mg Tab PO 25 mg QDAY RADHA Administration Sodium Chloride 10 ml 04/15/21 22:00 04/18/21 09:30 Sodium Chloride 0.9% 10 Ml Flush Syringe IV 10 ml BID RADHA Administration Sodium Chloride 10 ml 04/15/21 20:46 04/16/21 23:00 Sodium Chloride 0.9% 10 Ml Flush Syringe IV 10 ml PRN PRN Administration LINE FLUSH Tamsulosin HCl 0.4 mg 04/16/21 14:00 04/18/21 09:29 Tamsulosin 0.4 Mg Cap PO 0.4 mg DAILY [facility] Administration Tenofovir Disoproxil Fumarate 300 mg 04/16/21 15:00 04/18/21 09:30 Tenofovir 300 Mg Tab PO 300 mg QDAY [facility] Administration Thiamine HCl 100 mg 04/17/21 10:00 04/18/21 09:29 Thiamine 100 Mg Tab PO 100 mg QDAY [facility] Administration Torsemide 40 mg 04/19/21 10:00 Torsemide 10 Mg Tab PO DAILY [facility]
[2021-04-18] MEDS ORDERED: oxyCODONE /ACETAMINOPHEN 5-325MG TAB PO PRN (15:48)
[2021-04-18] MEDS: INSULIN REGULAR, HUMAN 100 UNITS/1 ML SUB-Q SCH ×2 (17:15→22:01)
[2021-04-18] MEDS: LATANOPROST 0.005% OPHTH SOLN 2.5 ML OU SCH (21:34)
[2021-04-19 07:00] LABS: Basophils % (Auto) 0.4 % (0.0-1.8); Eosinophils # (Auto) 0.1 K/mm3 (0.0-0.4); Eosinophils % (Auto) 1.9 % (0.0-4.3); Lymphocytes # (Auto) 0.8 K/mm3 (1.2-5.4); Lymphocytes % (Auto) 10.9 % (13.4-35.0); Mean Corpuscular HGB Conc 30 % (32-34); Mean Corpuscular Volume 86 fl (84-94); Monocytes # (Auto) 1.1 K/mm3 (0.0-0.8); Platelet Count 272 K/mm3 (140-440); Red Blood Count 4.09 M/mm3 (3.65-5.03)
[2021-04-19 07:02] LABS: Hematocrit 35.2 % (35.5-45.6); Hemoglobin 10.7 gm/dl (11.8-15.2); Red Cell Distribution Width 22.6 % (13.2-15.2)
[2021-04-19 07:11] LABS: BUN/Creatinine Ratio 53; Blood Urea Nitrogen 58 mg/dL (9-20); Calcium 8.2 mg/dL (8.4-10.2); Hemolysis Index 48
[2021-04-19] MEDS: INSULIN REGULAR, HUMAN 100 UNITS/1 ML SUB-Q SCH (08:15)
[2021-04-19] MEDS: APIXABAN 5 MG TAB PO SCH (09:02)
[2021-04-19] MEDS: DARUNAVIR 800 MG TAB PO SCH (09:02)
[2021-04-19] MEDS: DOLUTEGRAVIR 50 MG TAB PO SCH ×2 (09:02→09:15)
[2021-04-19] MEDS: EMTRICITABINE 200 MG CAP PO SCH ×2 (09:02→09:18)
[2021-04-19] MEDS: TENOFOVIR 300 MG TAB PO SCH ×2 (09:02→09:15)
[2021-04-19] MEDS: LINAGLIPTIN 5 MG TAB PO SCH (09:03)
[2021-04-19] MEDS: ASPIRIN EC 81 MG TAB PO SCH (09:03)
[2021-04-19] MEDS: TAMSULOSIN 0.4 MG CAP PO SCH (09:03)
[2021-04-19] MEDS: PYRIDOXINE 50 MG TAB PO SCH (09:03)
[2021-04-19] MEDS: THIAMINE 100 MG TAB PO SCH (09:03)
--- NOTE | 2021-04-19 09:32 | Discharge Summary ---
Providers - Providers Date of Admission: 04/15/21 20:46 Date of discharge: 04/19/21 Attending physician: ELLA GARCÍA 04/15/21 19:17 Consult to Physician [CONS] Routine Comment: Dr. Tripathi spoke with Dr. Alvarez @ [id number] Consulting Provider: PHAN ALVAREZ Physician Instructions: Reason For Exam: BARBER, elevated BUN 04/16/21 09:29 Consult to Physician [CONS] Routine Comment: Consulting Provider: ANGELITA PRIETO Physician Instructions: Reason For Exam: chf Primary care physician: ESTELA DIAZ Hospitalization Reason for admission: syncope Condition: Fair Hospital course: 55 YO Male with Obesity Hypoventilation Syndrome, COPD, CHF, PE on Therapeutic Anticoagulation with Eliquis, Pulmonary HTN presents to ED for evaluation of a syncopal episode after coughing. Patient states that he has experienced generalized weakness, shortness of breath over the past 1 week. Patient acknowledges 10 pound weight gain over the past 1 week, orthopnea, paroxysmal nocturnal dyspnea, decreased exercise tolerance. The patient was admitted with diagnosis of CHF decompensation, BARBER with ATN, Cardiorenal syndrome as well as Pulmonary Hypertension to telemetry and initiated on CHF protocol. The patient was admitted with diagnosis below: Acute heart failure exacerbation Acute on chronic hypoxic respiratory failure. Patient with home oxygen of 3 L. Cardiorenal syndrome Acute kidney injury with ATN, vasomotor nephropathy, prerenal azotemia Severe pulmonary hypertension Obesity hypoventilation syndrome Hyponatremia Deglutition syncope HIV Diabetes mellitus type 2 Echo 04/15/2021-EF 50 to 55%. Mild septal hypertrophy. Right ventricle is mildly dilated. Right ventricle systolic function is normal. There is an atrial septal aneurysm. Mild tricuspid regurgitation. Severe pulmonary hypertension 04/16/2021. We will check echocardiogram to assess systolic and diastolic function. Consult cardiology for further evaluation. Nephrology consulted for BARBER. Renal ultrasound shows no evidence of obstruction or hydronephrosis. Follow-up carotid ultrasound as well 04/17/2021. Cardiology reports patient had echocardiogram done as an outpatient in their office 2 days ago. Await echo results. Continue Eliquis, aspirin and atorvastatin. Nephrology reports acute kidney injury is most likely secondary to pre-renal azotemia in the setting of diuretic therapy with torsemide/metolazone. Patient appears well volume controlled at present, will hold off on diuretic for now and reassess renal parameters. Patient has history of hyponatremia on thiazide diuretic, nephrology recommends to hold metolazone in the future. Spironolactone will likely be added to diuretic regimen once kidney function stabilizes. Renal ultrasound shows no evidence of obstruction or hydronephrosis. Carotid ultrasound is negative. 04/18/2021. Patient currently requiring 3 L O2 which is at his baseline for home O2. Continue Eliquis, aspirin and atorvastatin. Patient had some improvement in creatinine. Await follow-up BMP this morning. 04/19/2021. I discussed the patient's deglutition syncope with cardiology who recommends patient to follow-up in the office with Holter monitor. Patient back to baseline respiratory status with 3 L O2. Creatinine has returned back to baseline as well and patient will discharge with recommendations per nephrology. Discontinue metolazone and decrease torsemide to 40 mg daily. Dedicated discharge time 35 minutes Disposition: HOME / SELF CARE / HOMELESS Final Discharge Diagnosis (Prints w/discharge instructions): Acute heart failure exacerbation. Acute on chronic hypoxic respiratory failure. Patient with home oxygen of 3 L. Cardiorenal syndrome. Acute kidney injury with ATN, vasomotor nephropathy, prerenal azotemia. Severe pulmonary hypertension. Obesity hypoventilation syndrome. Hyponatremia. Deglutition syncope Core Measure Documentation - Palliative Care Palliative Care/ Comfort Measures: Not Applicable - Core Measures Any of the following diagnoses?: heart failure - Heart Failure Discharge Requirements ANAYELI/ARB for LVSD if EF <40%: No Reason for no ANAYELI/ARB: Renal impairment Beta bre at discharge: No Reason for no beta bre on DC: Hypotension Exam - Constitutional Vitals: Temp Pulse Resp BP Pulse Ox 97.7 F 69 18 134/89 98 04/18/21 21:30 04/19/21 03:04 04/19/21 03:04 04/19/21 03:04 04/19/21 07:00 General appearance: Present: no acute distress, well-nourished - EENT Eyes: Present: PERRL ENT: hearing intact, clear oral mucosa - Neck Neck: Present: supple, normal ROM - Respiratory Respiratory effort: normal Respiratory: bilateral: CTA - Cardiovascular Heart Sounds: Present: S1 & S2. Absent: rub, click - Extremities Extremities: pulses symmetrical, No edema Peripheral Pulses: within normal limits - Abdominal General gastrointestinal: Present: soft, non-tender, non-distended, normal bowel sounds Male genitourinary: Present: normal - Integumentary Integumentary: Present: clear, warm, dry - Musculoskeletal Musculoskeletal: gait normal, strength equal bilaterally - Psychiatric Psychiatric: appropriate mood/affect, intact judgment & insight - Neurologic Neurologic: CNII-XII intact, moves all extremities Plan Activity: advance as tolerated Weight Bearing Status: Weight Bear as Tolerated Diet: low fat, low cholesterol, low salt, diabetic Additional Instructions: Follow-up with cardiology to arrange for Holter/event monitor for deglutition syncope Follow up with: ESTELA DIAZ PA [Primary Care Provider] - 7 Days ANGELITA PRIETO MD [Staff Physician] - 7 Days LINDSEY MCGREGOR MD [Staff Physician] - 7 Days Prescriptions: Torsemide [Demadex] 40 mg PO DAILY #30 tablet oxyCODONE /ACETAMINOPHEN [Percocet 5/325 mg] 1 tab PO Q4H PRN #10 tablet PRN Reason: Pain, Moderate (4-6)
[2021-04-19] MEDS ORDERED: TORSEMIDE 10 MG TAB PO SCH (10:00)
[2021-04-19 12:00] VITALS: BP 123/81
== END 2021-04-19 11:59 | disposition home or self-care (01) | DRG 682 ==
LOC: ED 16:03 → 3A 20:46
PROVIDERS: ADMIT Internal Medicine; ATTEND Hospitalist
PROC: 0HQ1XZZ Repair Face Skin, External Approach (ICD-10-PCS; principal; 2021-04-15)
DX: N17.0 Acute kidney failure with tubular necrosis (principal); J96.21 Acute and chronic respiratory failure with hypoxia; I50.33 Acute on chronic diastolic (congestive) heart failure; I13.0 Hypertensive heart and chronic kidney disease with heart failure and stage 1 through stage 4 chronic kidney disease, or unspecified chronic kidney disease; E66.2 Morbid (severe) obesity with alveolar hypoventilation; Z68.42 Body mass index [BMI] 45.0-49.9, adult; E87.1 Hypo-osmolality and hyponatremia; B20 Human immunodeficiency virus [HIV] disease; R55 Syncope and collapse; I27.20 Pulmonary hypertension, unspecified; J44.9 Chronic obstructive pulmonary disease, unspecified; E87.8 Other disorders of electrolyte and fluid balance, not elsewhere classified; I25.10 Atherosclerotic heart disease of native coronary artery without angina pectoris; S01.512A Laceration without foreign body of oral cavity, initial encounter; I48.91 Unspecified atrial fibrillation; E11.22 Type 2 diabetes mellitus with diabetic chronic kidney disease; N18.9 Chronic kidney disease, unspecified; Z79.82 Long term (current) use of aspirin; I25.2 Old myocardial infarction; Z86.711 Personal history of pulmonary embolism; Z83.3 Family history of diabetes mellitus; Z82.49 Family history of ischemic heart disease and other diseases of the circulatory system; W19.XXXA Unspecified fall, initial encounter; Y93.89 Activity, other specified; Y92.89 Other specified places as the place of occurrence of the external cause; Y99.8 Other external cause status
CPT/HCPCS: 36415; 70450; 70486; 71046; 76770; 80048; 81001; 82565; 82570; 82962; 83880; 84156; 84300; 84484; 85007; 85025; 85027; 85610; 85730; 93005; 93010; 93880; 94640; 94760; G0378; J3490; Q9967; J1170; J1815